=== PATIENT | male | born 1950 | race Caucasian/White ===

== ENCOUNTER → 2016-05-03 | Outpatient (CLI) | payer MEDICARE, BC ==
--- NOTE | 2016-05-03 20:16 | CT ---
EXAMINATION TYPE: CT ChestAbdPelvis w con DATE OF EXAM: 05/03/2016 7:49 PM COMPARISON: 02/06/2016 HISTORY: Pt states of pancreatic CA, F/U for mets. CT DLP: 685.9 mGycm Automated exposure control for dose reduction was used. CONTRAST: CT scan of the chest, abdomen and pelvis is performed with Oral Contrast and with IV Contrast, patien t injected with 100 mL of Omnipaque 300. FINDINGS: There is minimal subsegmental atelectasis at the lung bases. Heart size is normal. There is air in the biliary tree. There is cholecystectomy. There has been apparent resection of most of the pancreas compared to last exam. There is no adrenal mass. Kidneys show satisfactory contrast opacification. There is no hydronephrosi s. Ureters are not dilated. Spleen is absent. Abdominal aorta is atheromatous. There is variable plaque in the abdominal aorta. 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 Bladder distends smoothly. There is no sign of a pelvic mass. There is no ascites. I see no bowel obs truction. There is a 1 cm cortical cyst on the lower pole right kidney. There is no retroperitoneal a denopathy. Aneurysm extends into the common iliac arteries. Common iliac arteries measure up to 2 cm. I see no bony destructive process. There is no evidence of a pulmonary mass. There are no hilar masses. I see no filling defects in the pulmonary arteries. There is no pericardial effusion. There is no mediastinal adenopathy. IMPRESSION: Minimal fibrotic changes in atelectasis at the posterior lung bases. Otherwise negative C T scan of the chest. There is been apparent resection of the spleen and pancreas since the last CT scan. No dilated ducts. No evidence of renal obstruction. There is a stable 4 cm aneurysm of the abdominal aorta that extend s into the iliac arteries. No sign of recurrent tumor. No evidence of thoracic or abdominal metastati c disease. There is new mild subcutaneous edema over the posterior lower lumbar spine.
== END | disposition home or self-care (01) ==
LOC: RADCTMAIN 17:30
PROVIDERS: ATTEND Internal Medicine Hematology & Oncology
DX: J98.11 Atelectasis (principal); J84.10 Pulmonary fibrosis, unspecified; I71.4 Abdominal aortic aneurysm, without rupture; C24.1 Malignant neoplasm of ampulla of Vater
CPT/HCPCS: 71260; 74177; Q9967 ×2

== ENCOUNTER 2016-07-29 09:47 | Day surgery (SDC) | payer MEDICARE, BC ==
[2016-07-25 12:49] VITALS: BMI 23.5
--- NOTE | 2016-07-29 05:16 | HP ---
DATE OF ADMISSION: Chief complaint is fluid in the left ear. HISTORY OF PRESENT ILLNESS: This patient is a 66-year-old male who was recently seen in my office for evaluation of a plugged sensation in his left ear. At the time he was seen in my office, the patient stated that he had previously had a ventilation tube placed in his left ear at an ENT physician's office in [place], [place]. At the time that he was seen in the office he was complaining again that the left ear was plugged and apparently the tube had come out. Clinical examination of left ear revealed chronic left serous otitis media, so-called glue ear. It was recommended that the patient undergo a left myringotomy with insertion of ventilation tube under IV sedation. Past medical history reveals that the patient has no known allergies to medications. Previous surgeries include Whipple procedure, cervical fusion, portal shunt, and a left myringotomy with insertion of ventilation tube. He has no known allergies to medications. He is currently undergoing chemotherapy. His current medications include Lipitor, Hytrin, Valium, Protonix, Lovenox, Humalog and Lantus insulin. Review of systems reveals a cardiovascular system is positive for hypertension. Gastrointestinal system is positive for GERD. Metabolic/endocrine system is positive for type 1 diabetes mellitus. The remainder review of systems is essentially unremarkable. It is to be noted that this patient is currently undergoing chemotherapy for pancreatic carcinoma. PHYSICAL EXAMINATION: The patient is a pleasant 66-year-old male who is alert and cooperative. HEENT EXAMINATION: Patient is normocephalic. Examination of the right ear reveals right tympanic membrane is unremarkable. Examination of left ear reveals the left tympanic membrane is dull with fluid in the left middle ear space. Pupils equal, round, and reactive to light and accommodation. Extraocular movements are within normal limits. Intranasal examination reveals severe septal deviation to the left with compensatory hypertrophy of the inferior turbinates. Examination of the oropharynx, cranial nerves 2 through 12 and the remainder of the head and neck exam were essentially unremarkable. CHEST/CARDIOVASCULAR: Both lung lance are clear to percussion and auscultation. The patient is in regular sinus rhythm. S1 and S2 are present without evidence of any murmurs, S3s or S4s. Peripheral pulses are bilaterally symmetrical. ABDOMEN: There is no evidence of any masses, megaly or tenderness. The abdomen is soft. Skin is unremarkable. Musculoskeletal and neurological are within normal limits. RECTAL EXAM: The rectal exam is deferred at this time because the patient has this done on a regular basis at his family physician's office. The remainder of physical exam is unremarkable. IMPRESSION: Chronic left serous otitis media. PLAN: The patient is scheduled to undergo a left myringotomy with insertion of ventilation tube under IV sedation with MAC in a.m. ATTENTION RNS IN THE PRESURGICAL AREA: I have not ordered any presurgical prophylactic antibiotics for this patient. If the pharmacy department sends any presurgical prophylactic antibiotics to the presurgical area for this patient they should be returned to the pharmacy department and please make sure that the patient's account is credited appropriately. I have not ordered any medications for this patient preoperatively. I have explained the operation/procedure to the patient, including the risks, benefits, side effects, alternative therapies (including not receiving the proposed treatment or service), the likelihood of the patient achieving his/her goals, and potential recuperation problems for the procedure/sedation/analgesia, as well as any blood products, if indicated. I also explained to the patient the risks, benefits, and side effects of the alternatives, as well as the risks related to not receiving the proposed procedure, care treatment or services.
[~2016-07-29 09:47] MED LIST: DEXAMETHASONE SOD PHOSPHATE 10 MG/ML 1 ML VIAL IV ONE; HYDROmorphone 1 MG/ML 1 ML SYRINGE IVP PRN; LACTATED RINGERS 1,000 ML IV SCH; ONDANSETRON 4 MG/2 ML VIAL IVP ONE; Pre Op ABX Message 1 EACH MISC MISCELLANE ONE
[2016-07-29 11:11] LABS: Glucose,Whole Blood 255 mg/dL (75-99)
[2016-07-29 11:13] VITALS: RESP 16
[2016-07-29] MEDS ORDERED: LIDOCAINE 1% 20 ML VIAL (10MG/ML) FOR IV START INTRADERMA ONE (11:24)
[2016-07-29] MEDS ORDERED: MIDAZOLAM 2 MG/2 ML VIAL ONE (12:08)
[2016-07-29] MEDS ORDERED: PROPOFOL 10 MG/ML 20 ML VIAL IV ONE (12:08)
[2016-07-29] MEDS ORDERED: fentaNYL (PF) 50 MCG/ML 2 ML AMP ONE (12:08)
[2016-07-29] MEDS ORDERED: OFLOXACIN 0.3% OTIC DROPS 5 ML BTL LEFT EAR ONE ×2 (12:18→12:24)
[2016-07-29 12:39] VITALS: TEMP 97.6
[2016-07-29 12:45] LABS: Glucose,Whole Blood 243 mg/dL (75-99)
[2016-07-29 13:50] VITALS: BP 110/69; PULSE 79
--- NOTE | 2016-07-29 18:15 | OP ---
DATE OF SERVICE: 07/29/2016 SURGEON: ANI MARCIAL MD HOUSEKEEPING MANAGER: PREOPERATIVE DIAGNOSIS: Chronic left serous otitis media. POSTOPERATIVE DIAGNOSIS: Chronic left serous otitis media. OPERATION: Left myringotomy with insertion of a Manuel-type T tube into the left tympanic membrane. ANESTHESIA: IV sedation with M.A.C. ESTIMATED BLOOD LOSS: SPECIMENS REMOVED: COMPLICATIONS: None. OPERATIVE FINDINGS: OPERATIVE PROCEDURE: The patient was placed on the operating table in supine position and after uneventful IV sedation, satisfactory sedation was obtained. Next the patient's left ear was draped in the usual and customary fashion. Next, using the Zeiss operating microscope and a #3 aural speculum, the left external auditory canal was cleansed of all wax and debris. Immediately one could see the dull-colored left tympanic membrane. This suggested that the left middle ear space was filled with fluid. Therefore, using the myringotomy knife, an incision was made in the anterior/inferior quadrant of the left tympanic membrane. The middle ear space was suctioned free of all serous fluid and a Manuel T-type ventilation tube was inserted through the previously made myringotomy incision without any difficulty. At this point the procedure was terminated. There were no intraoperative complications. The patient tolerated the procedure well and was returned to the recovery room in satisfactory condition.
== END 2016-07-29 14:05 | disposition home or self-care (01) ==
LOC: OR 09:47
PROVIDERS: ATTEND Otolaryngology
DX: H65.22 Chronic serous otitis media, left ear (principal); I10 Essential (primary) hypertension; E78.5 Hyperlipidemia, unspecified; E10.9 Type 1 diabetes mellitus without complications; K21.9 Gastro-esophageal reflux disease without esophagitis; C25.9 Malignant neoplasm of pancreas, unspecified; Z79.02 Long term (current) use of antithrombotics/antiplatelets; Z79.4 Long term (current) use of insulin; Z79.899 Other long term (current) drug therapy; Z86.718 Personal history of other venous thrombosis and embolism; Z98.1 Arthrodesis status
CPT/HCPCS: 69436; J2250; J1100; J2405; J3010; J2704

== ENCOUNTER → 2016-08-19 | Outpatient (CLI) | payer MEDICARE, BC ==
[2016-08-19 14:34] LABS: Hemoglobin A1C 8.4 % (4.2-6.1)
== END | disposition home or self-care (01) ==
LOC: LABWHC1 09:02
PROVIDERS: ATTEND Internal Medicine Endocrinology, Diabetes & Metabolism
DX: E89.1 Postprocedural hypoinsulinemia (principal); E13.9 Other specified diabetes mellitus without complications; Z90.410 Acquired total absence of pancreas
CPT/HCPCS: 36415; 83036

== ENCOUNTER → 2016-09-16 | Outpatient (CLI) | payer MEDICARE, BC ==
--- NOTE | 2016-09-16 12:34 | CT ---
EXAMINATION TYPE: CT ChestAbdPelvis w con DATE OF EXAM: 09/16/2016 COMPARISON: 05/03/2016 and 02/06/2016 HISTORY: pancreatic CA CT DLP: 587.6 mGycm. Automated Exposure Control for Dose Reduction was Utilized. CONTRAST: CT scan of the thorax, abdomen and pelvis is performed with IV Contrast, patient injected with 100 mL of Omnipaque 300. FINDINGS: LUNGS: Mild centrilobular emphysematous changes are seen as well as pleural parenchymal scarring at t he lung bases. The lungs are grossly clear, there is no concerning parenchymal mass or nodule identif ied. There is no pleural effusion or pneumothorax seen. The tracheobronchial tree is patent. Small right posterior diaphragmatic hernias noted. MEDIASTINUM: There are no greater than 1 cm hilar or mediastinal lymph nodes. No pericardial effusi on is seen. OTHER: No additional significant abnormality is seen. LIVER/GB: No significant abnormality is appreciated. Area of low attenuation within the left hepatic lobe is thought to be related to a coursing hepatic vein and no focal measurable lesion is present. G allbladder is surgically absent. PANCREAS: Portions of the pancreas are surgically absent and the remaining portions have atrophied. SPLEEN: Surgically absent. ADRENALS: No significant abnormality is seen. KIDNEYS: Low-density right renal lesion emanating from the inferior pole is unchanged in the prior ex am and may represent a cyst with pseudoenhancement. BOWEL: No significant abnormality is seen. Sigmoid diverticulosis is noted without evidence of bowel wall thickening or obstructive process. GENITAL ORGANS: No gross abnormality seen. LYMPH NODES: No greater than 1cm abdominal or pelvic lymph nodes are appreciated although evaluation for local adenopathy is somewhat limited given the hepaticojejunal anastomotic site does not contain contrast or air and there is paucity of intra-abdominal fat in the peripancreatic region as well as m ild mesenteric congestion creating FAT stranding. OSSEOUS STRUCTURES: No suspicious osseous lesions. Midthoracic vertebral body hemangioma is noted as well as mild degenerative changes of the thoracolumbar and lumbosacral spine. OTHER: Long segment infrarenal abdominal aortic aneurysm is stable from the prior examination measuri ng up to 3.6 cm and extends into the common iliac arteries. IMPRESSION 1. Postsurgical changes of the abdomen with surgical absence pancreas and gallbladder. Hepaticojejuno stomy is noncontrast film and there is possibly a peripancreatic abdominal fat with mesenteric conges tive changes all limiting the evaluation for local adenopathy. Further investigation for adenopathy o r hepatic lesions could be pursued with MR abdomen. 2. Stable long segment infrarenal abdominal aortic aneurysm extending into the common iliac arteries. 3. No evidence of metastatic disease or adenopathy within the chest.
== END | disposition home or self-care (01) ==
LOC: RADPROMAIN 10:26
PROVIDERS: ATTEND Internal Medicine Hematology & Oncology
DX: I71.4 Abdominal aortic aneurysm, without rupture (principal); C24.8 Malignant neoplasm of overlapping sites of biliary tract; Z90.410 Acquired total absence of pancreas; Z90.49 Acquired absence of other specified parts of digestive tract; Z98.890 Other specified postprocedural states
CPT/HCPCS: 71260; 74177; 36415; Q9967

== ENCOUNTER → 2016-11-22 | Outpatient (CLI) | payer MEDICARE, BC | END | disposition home or self-care (01) | LOC: LABWHC1 10:04 | PROVIDERS: ATTEND Internal Medicine Endocrinology, Diabetes & Metabolism | DX: E10.9 Type 1 diabetes mellitus without complications (principal) | CPT/HCPCS: 36415; 83036 ==

== ENCOUNTER → 2017-02-04 | Outpatient (CLI) | payer MEDICARE, BC ==
[2017-02-04 11:28] LABS: ALT 56 U/L (21-72); AST 51 U/L (17-59); Albumin 3.6 g/dL (3.5-5.0); Alkaline Phosphatase 123 U/L (38-126); Anion Gap 7 mmol/L; Blood Urea Nitrogen 7 mg/dL (9-20); Calcium 9.8 mg/dL (8.4-10.2); Carbon Dioxide 31 mmol/L (22-30); Chloride 100 mmol/L (98-107); Glucose 299 mg/dL (74-99); Potassium 4.6 mmol/L (3.5-5.1); Sodium 138 mmol/L (137-145); Total Bilirubin 0.6 mg/dL (0.2-1.3)
--- NOTE | 2017-02-04 16:17 | CT ---
EXAMINATION TYPE: CT ChestAbdPelvis w con DATE OF EXAM: 02/04/2017 INDICATION: Follow up for ampullary cancer COMPARISON: 09/16/2016 CT DLP: 585.6 mGycm CONTRAST: Performed with Oral Contrast and with IV Contrast, patient injected with 100ml mL of Omnipaque 300. TECHNIQUE: Axial images at 5 mm thick sections. Reconstructed images in the coronal plane. Delayed images through the kidneys. FINDINGS: CT CHEST: Portion of the thyroid visualized is normal. No suspicious lung nodules or focal infiltrates are present. No enlarged mediastinal or hilar adenopathy is evident. The ascending aorta diameter at the level of the main pulmonary artery is 3.3 cm. The main pulmonary artery diameter at the bifurcation is 2.1 cm. Dense coronary artery calcification is evident. Vascul ar calcifications within the aorta. CT ABDOMEN: Liver: Normal. No hepatobiliary air is evident. Spleen: Surgically absent. Pancreas: Not identified. Density within the mesenteric fat is identification of residual pancreas di fficult. Adrenal glands: The adrenal glands are normal. Gallbladder: Surgically absent. Kidneys: No masses are evident. No hydronephrosis is present. Small cortical renal cyst is present on the right kidney. Delayed images were obtained through the kidneys, which remain unremarkable. Aorta: There is an infrarenal abdominal aortic aneurysm with AP diameter of 4.5 cm. Additional fusifo rm prominence of the distal abdominal aorta to the bifurcation is present with the AP diameter measur ing 3.7 cm. The right common iliac artery is a transverse dimension of 2.3 cm. Distal left common roni ac artery has some dilatation measuring 1.8 cm. Dense calcification is within the internal and retail personal banker al iliac vessels. Inferior vena cava: Normal. CT PELVIS: Small bowel loops distended with oral contrast appear normal. Distal small bowel loops. Contain fluid and are slightly prominent. A few diverticular changes are within the sigmoid colon. Fecal debris is within the colon. There are loops of bowel which are incompletely distended or lack oral contrast li miting their evaluation. Appendix: Normal as visualized. Urinary bladder: Normal. Genitourinary structures: Prostate may be mildly prominent. Osseous structures: No suspicious lytic or sclerotic lesions. IMPRESSIONS: 1. Examination appears stable from 09/16/2016. 2. Abdominal aortic fusiform prominence and abdominal aortic aneurysm discussed above. 3. Postsurgical changes upper abdomen
== END | disposition home or self-care (01) ==
LOC: RADCTMAIN 10:38
PROVIDERS: ATTEND Internal Medicine Hematology & Oncology
DX: C24.8 Malignant neoplasm of overlapping sites of biliary tract (principal); I71.4 Abdominal aortic aneurysm, without rupture; E10.9 Type 1 diabetes mellitus without complications; Z98.890 Other specified postprocedural states
CPT/HCPCS: 80053; 71260; 74177; 36415; Q9967

== ENCOUNTER → 2017-02-27 | Outpatient (CLI) | payer MEDICARE, BC ==
[2017-02-27 12:10] LABS: Basophils % (A) 1 %; Eosinophils # (A) 0.5 k/uL (0-0.7); Eosinophils % (A) 10 %; HCT 40.3 % (39.0-53.0); HGB 12.8 gm/dL (13.0-17.5); Lymphocytes # (A) 1.2 k/uL (1.0-4.8); Lymphocytes % (A) 25 %; MCH 33.7 pg (25.0-35.0); MCHC 31.7 g/dL (31.0-37.0); MCV 106.2 fL (80.0-100.0); Macrocytosis Moderate; Mean Platelet Volume 9.1; Monocytes # (A) 0.5 k/uL (0-1.0); Monocytes % (A) 9 %; Neutrophils # (A) 2.6 k/uL (1.3-7.7); Neutrophils % (A) 52 %; Platelet Count 167 k/uL (150-450); RDW 15.1 % (11.5-15.5); WBC 5.1 k/uL (3.8-10.6)
== END | disposition home or self-care (01) ==
LOC: LABWHC1 11:10
PROVIDERS: ATTEND Radiology Radiation Oncology
DX: C24.1 Malignant neoplasm of ampulla of Vater (principal)
CPT/HCPCS: 36415; 85025

== ENCOUNTER → 2017-04-03 | Outpatient (CLI) | payer MEDICARE, BC | END | disposition home or self-care (01) | LOC: LABWHC1 10:42 | PROVIDERS: ATTEND Internal Medicine Endocrinology, Diabetes & Metabolism | DX: E11.9 Type 2 diabetes mellitus without complications (principal) | CPT/HCPCS: 36415; 83036 ==

== ENCOUNTER → 2017-06-26 | Outpatient (CLI) | payer MEDICARE, BC ==
[2017-06-26 14:01] LABS: Basophils % (A) 1 %; Eosinophils # (A) 0.1 k/uL (0-0.7); Eosinophils % (A) 3 %; HCT 39.3 % (39.0-53.0); Lymphocytes # (A) 1.5 k/uL (1.0-4.8); Lymphocytes % (A) 34 %; MCH 33.4 pg (25.0-35.0); MCHC 33.2 g/dL (31.0-37.0); MCV 100.7 fL (80.0-100.0); Mean Platelet Volume 9.5; Monocytes # (A) 0.4 k/uL (0-1.0); Monocytes % (A) 9 %; Neutrophils # (A) 2.1 k/uL (1.3-7.7); Neutrophils % (A) 50 %; Platelet Count 156 k/uL (150-450); RDW 13.7 % (11.5-15.5); WBC 4.3 k/uL (3.8-10.6)
[2017-06-26 14:15] LABS: ALT 49 U/L (21-72); AST 46 U/L (17-59); Albumin 3.8 g/dL (3.5-5.0); Alkaline Phosphatase 117 U/L (38-126); Anion Gap 9 mmol/L; Blood Urea Nitrogen 7 mg/dL (9-20); Calcium 9.4 mg/dL (8.4-10.2); Carbon Dioxide 29 mmol/L (22-30); Chloride 100 mmol/L (98-107); Glucose 208 mg/dL (74-99); Potassium 4.1 mmol/L (3.5-5.1); Sodium 138 mmol/L (137-145); Total Bilirubin 0.8 mg/dL (0.2-1.3); Total Protein 5.9 g/dL (6.3-8.2)
== END | disposition home or self-care (01) ==
LOC: LABWHC1 13:36
PROVIDERS: ATTEND Internal Medicine Hematology & Oncology
DX: C25.9 Malignant neoplasm of pancreas, unspecified (principal)
CPT/HCPCS: 36415; 80053; 85025; 86301

== ENCOUNTER → 2017-06-30 | Outpatient (CLI) | payer MEDICARE, BC ==
[2017-07-01 02:16] LABS: Hemoglobin A1C 9.1 % (4.0-6.0)
== END | disposition home or self-care (01) ==
LOC: LABWHC1 16:01
PROVIDERS: ATTEND Internal Medicine Endocrinology, Diabetes & Metabolism
DX: E11.65 Type 2 diabetes mellitus with hyperglycemia (principal); Z79.4 Long term (current) use of insulin
CPT/HCPCS: 36415; 83036

== ENCOUNTER → 2017-07-03 | Outpatient (CLI) | payer MEDICARE, BC ==
--- NOTE | 2017-07-03 13:41 | CT ---
EXAMINATION TYPE: CT ChestAbdPelvis w con DATE OF EXAM: 07/03/2017 COMPARISON: 02/04/2017 HISTORY: Patient has no complaints at time of study. Follow up study for known pancreatic CA post wh ipple. CT DLP: 1240 mGycm CONTRAST: CT scan of the chest, abdomen and pelvis is performed with Oral Contrast and with IV Contrast, patien t injected with 100 mL of Isovue 300. CT Chest: LUNGS: Emphysematous changes identified mild in degree within the upper lobes. The lungs are clear an d free of infiltrate or atelectasis. No pulmonary nodule or mass is detected. No pleural effusion o r CT evidence of interstitial lung disease. MEDIASTINUM: Thoracic aorta is of normal caliber. The heart is not enlarged. Coronary artery calci fications noted. No evidence for mediastinal mass or adenopathy. HILAR STRUCTURES: No evidence for mass. No hilar adenopathy is appreciated. OTHER: No significant abnormality. CONTRAST CT ABDOMEN AND PELVIS FINDINGS: LIVER/GB: The gallbladder surgically absent. No space occupying hepatic lesion. Biliary tree is of no rmal caliber. PANCREAS: There appears to have been previous Whipple procedure. No recurrent or residual pancreatic bed mass identified. SPLEEN: No splenic enlargement. No lesion seen. ADRENALS: No nodule. No thickening. KIDNEYS/BLADDER: No hydronephrosis. No nephrolithiasis. Mixed attenuation lesion lower pole left ki dney measuring 2 cm is suspicious for renal cell carcinoma. consult recommended. Simple cyst lower pole right kidney. BOWEL: Normal appendix. Normal bowel caliber. No inflammation. GENITAL ORGANS: No gross abnormality. LYMPH NODES: No greater than 1cm abdominal or pelvic lymph nodes are appreciated. AORTA: Infrarenal fusiform aneurysm is essentially unchanged with extension into the common iliac art eries bilaterally. OSSEOUS STRUCTURES: No significant abnormality is seen. OTHER: No significant additional abnormality is seen. IMPRESSION: 1. Mixed attenuation lesion lower pole left kidney measuring 2 cm is suspicious for renal cell carcin beth. consult recommended. 2. No evidence for recurrent or residual pancreatic mass. 3. Infrarenal abdominal aortic aneurysm appears stable.
== END | disposition home or self-care (01) ==
LOC: RADCTMAIN 11:15
PROVIDERS: ATTEND Internal Medicine Hematology & Oncology
DX: C24.8 Malignant neoplasm of overlapping sites of biliary tract (principal); N28.9 Disorder of kidney and ureter, unspecified; I71.4 Abdominal aortic aneurysm, without rupture; Z85.07 Personal history of malignant neoplasm of pancreas; Z98.890 Other specified postprocedural states
CPT/HCPCS: 71260; 74177; Q9967

== ENCOUNTER 2017-09-16 13:03 | Emergency (ER) | payer MEDICARE, BC ==
[2017-09-16 13:13] VITALS: RESP 18; TEMP 98
--- NOTE | 2017-09-16 14:14 | ED ---
General Adult HPI - General Chief complaint: Back Pain/Injury Stated complaint: lt sided rib pain Time Seen by Provider: 09/16/17 14:05 Source: patient, RN notes reviewed Mode of arrival: ambulatory Limitations: no limitations - History of Present Illness Initial comments: This is a 67-year-old male who presents to the emergency department with chief complaint of left-sided rib pain. Patient states that a few days ago he was walking quickly around his card table. He states that he ran into a chair and hit the left side of his ribs hard. Patient states that he is now experiencing left-sided rib pain. Patient states that pain is increased with twisting, bending over and lying on his left side. He denies any shortness of breath or chest pain. He denies any abdominal pain. Denies fevers or chills. - Related Data Home Medications Medication Instructions Recorded Confirmed Atorvastatin [Lipitor] 80 mg PO 1600 04/10/15 07/29/16 Diazepam [Valium] 10 mg PO DAILY PRN 04/10/15 07/29/16 Terazosin [Hytrin] 2 mg PO 1600 04/10/15 07/29/16 Cholecalciferol [Vitamin D3] 2,000 unit PO DAILY 09/28/15 07/29/16 Enoxaparin [Lovenox] 70 units SQ BID 07/25/16 07/29/16 INSULIN LISPRO (HumaLOG) [HumaLOG] 0 units SQ QID 07/25/16 07/29/16 Insulin Glargine [Lantus] 20 unit SQ QAM 07/25/16 07/29/16 Lipase/Protease/Amylase [Creon Dr 1 each PO TID 07/25/16 07/29/16 6,000 Units Capsule] Pantoprazole Sodium [Protonix] 40 mg PO QAM 07/25/16 07/29/16 Previous Rx's Medication Instructions Recorded Ofloxacin 0.3% Ophth Soln [Ocuflox 10 drops LEFT EAR BID #5 ml NS 07/29/16 Ophth Soln] Allergies Allergy/AdvReac Type Severity Reaction Status Date / Time No Known Allergies Allergy Verified 09/16/17 13:13 Review of Systems ROS Statement: Those systems with pertinent positive or pertinent negative responses have been documented in the HPI. ROS Other: All systems not noted in ROS Statement are negative. Past Medical History Past Medical History: Cancer, Diabetes Mellitus, Deep Vein Thrombosis (DVT), Hearing Disorder / Deafness, Hyperlipidemia, Myocardial Infarction ([place]), Musculoskeletal Disorder, Osteoarthritis ([place]), Pneumonia Additional Past Medical History / Comment(s): PNEUMONIA 04/10/15, HAS ABDOMINAL AORTIC ANEURYSM- DR. JOHNSON, CONSTIPATION, ARTHRITIS IN NECK & LOWER BACK, CHRONIC LEFT EAR INFECTIONS. PANCREATIC CANCER, ON CHEMO LAST DONE ON 07/12/16. DVT RIGHT LEG JUNE 04. DVT AFTER FEEDING TUBE REMOVED MAR 2016. CURRENTLY HAS PORT A CATH NEAR RIGHT SHOULDER. SEPSIS AND CELLULITIS MAY 2016. HARD OF HEARING BILATERALLY. Last Myocardial Infarction Date:: 1988 History of Any Multi-Drug Resistant Organisms: None Reported Past Surgical History: Ear Surgery, Heart Catheterization Additional Past Surgical History / Comment(s): CERVICAL FUSION X 2, TUBE IN LEFT EAR JUNE 2015, HEART CATH WITH BALLOONING 1988. FEEDING TUBE AND PICC LINE - REMOVED MAR 2016. PORT A CATH BY RIGHT SHOULDER. WHIPPLE PROCEDURE MAR 07 2016 , PANCREATIC CANCER. Past Anesthesia/Blood Transfusion Reactions: No Reported Reaction Past Psychological History: No Psychological Hx Reported Smoking Status: Former smoker Past Alcohol Use History: None Reported Past Drug Use History: None Reported - Past Family History Mother Family Medical History: Diabetes Mellitus Father Family Medical History: Cancer Additional Family Medical History / Comment(s): LIVER CA General Exam - General Exam Comments Initial Comments: General: Awake and alert, well-developed; in no apparent distress. Patient lying comfortably on ED stretcher. He does have difficulty going from lying to sitting position due to pain. HEENT: Head atraumatic, normocephalic. Pupils are equal, round and reactive to light. Extraocular movements intact. Oropharynx moist without erythema or exudate. Neck: Supple. Normal ROM. Cardiovascular/Chest: Regular rate and rhythm. No murmurs, rubs or gallops. Chest symmetrical. There is tenderness on palpation of the left anterolateral inferior ribs. No obvious deformities. Respiratory: Lungs clear to auscultation bilaterally. No wheezes, rales or rhonchi. Normal respiratory effort with no use of accessory muscles. Abdomen: Soft, non-tender, non-distended. No rigidity, rebound or guarding. Musculoskeletal: Normal ROM, no tenderness bilateral upper and lower extremities. Ambulating normally. Skin: [place], warm and dry without rashes or lesions. Neurological: Alert and oriented x3. CN II-XII grossly intact. Speech is fluent and answers are appropriate. No focal neuro deficits. Psychiatric: Normal mood and affect. No overt signs of depression or anxiety noted. Limitations: no limitations Course Vital Signs 09/16/17 13:10 Temperature 98 F Pulse Rate 68 Respiratory 18 Rate Blood Pressure 153/73 O2 Sat by Pulse 98 Oximetry Medical Decision Making - Medical Decision Making This is a 67-year-old male who presents to the emergency department with chief complaint of left-sided rib pain. Patient reports running into a chair a few days ago and experiencing left-sided rib pain. Pain is positional and reproducible. Denies shortness of breath, chest pain, fevers or chills. Denies abdominal pain. Tenderness on palpation of left anterolateral inferior ribs. Chest x-ray revealed no acute cardiopulmonary processes. No evidence of displaced fractures. Recommended Tylenol, ice and rest. Educated patient that may be a few weeks before he experiences total relief of pain. Recommended following up with his primary care provider. Return parameters were discussed. Patient's vital signs are stable and he is in no acute distress. He will be discharged home at this time. He is in agreement and voices understanding. All questions were answered. - Radiology Data Radiology results: report reviewed Chest x-ray findings: There is no focal airspace opacity, pleural effusion or pneumothorax seen. The cardiac silhouette size is within normal limits. The osseous structures are intact. Prominent lung volumes compatible with emphysema , COPD. There are coronary artery calcifications. The aorta stents. Impression: No acute cardiopulmonary process Disposition Clinical Impression: Contusion of rib on left side Disposition: HOME SELF-CARE Condition: Good Instructions: Rib Contusion (ED) Additional Instructions: Please follow up with primary care provider within 1-2 days. Return to emergency department if symptoms should worsen or any concerns arise. Is patient prescribed a controlled substance at d/c from ED?: No Referrals: Brando Chapman DO [Primary Care Provider] - 1-2 days Time of Disposition: 14:50
--- NOTE | 2017-09-16 14:33 | XR ---
EXAMINATION TYPE: XR chest 2V DATE OF EXAM: 09/16/2017 COMPARISON: Prior chest x-ray 02/06/2016 HISTORY: Trauma and pain TECHNIQUE: Frontal and lateral views of the chest are obtained. FINDINGS: There is no focal air space opacity, pleural effusion, or pneumothorax seen. The cardiac silhouette size is within normal limits. The osseous structures are intact. Prominent lung volumes compatible with emphysema, COPD. There are coronary artery calcifications. The aorta is dense. IMPRESSION: No acute cardiopulmonary process.
[2017-09-16 15:01] VITALS: BP 111/67; PULSE 55
== END 2017-09-16 15:01 | disposition home or self-care (01) ==
LOC: EC 13:03
DX: S20.212A Contusion of left front wall of thorax, initial encounter (principal); E11.9 Type 2 diabetes mellitus without complications; E78.5 Hyperlipidemia, unspecified; I25.2 Old myocardial infarction; Z86.718 Personal history of other venous thrombosis and embolism; Z85.07 Personal history of malignant neoplasm of pancreas; Z92.21 Personal history of antineoplastic chemotherapy; Z95.818 Presence of other cardiac implants and grafts; Z87.891 Personal history of nicotine dependence; Z79.01 Long term (current) use of anticoagulants; Z79.4 Long term (current) use of insulin; Z79.899 Other long term (current) drug therapy; W22.8XXA Striking against or struck by other objects, initial encounter; Y93.02 Activity, running
CPT/HCPCS: 71046; 99283

== ENCOUNTER → 2017-11-24 | Outpatient (CLI) | payer MEDICARE, BC ==
[2017-11-24 11:00] LABS: Basophils % (A) 1 %; Eosinophils # (A) 0.1 k/uL (0-0.7); Eosinophils % (A) 1 %; HCT 39.2 % (39.0-53.0); Lymphocytes # (A) 1.8 k/uL (1.0-4.8); Lymphocytes % (A) 33 %; MCH 33.5 pg (25.0-35.0); MCHC 33.1 g/dL (31.0-37.0); MCV 101.2 fL (80.0-100.0); Macrocytosis Slight; Mean Platelet Volume 9.2; Monocytes # (A) 0.5 k/uL (0-1.0); Monocytes % (A) 9 %; Neutrophils # (A) 2.9 k/uL (1.3-7.7); Neutrophils % (A) 54 %; Platelet Count 167 k/uL (150-450); RBC 3.87 m/uL (4.30-5.90); WBC 5.3 k/uL (3.8-10.6)
[2017-11-24 11:23] LABS: ALT 43 U/L (21-72); AST 66 U/L (17-59); Albumin 3.7 g/dL (3.5-5.0); Alkaline Phosphatase 115 U/L (38-126); Anion Gap 8 mmol/L; Blood Urea Nitrogen 7 mg/dL (9-20); Calcium 9.2 mg/dL (8.4-10.2); Carbon Dioxide 28 mmol/L (22-30); Chloride 101 mmol/L (98-107); Glucose 256 mg/dL (74-99); Potassium 4.7 mmol/L (3.5-5.1); Sodium 137 mmol/L (137-145); Total Bilirubin 0.9 mg/dL (0.2-1.3); Total Protein 6.1 g/dL (6.3-8.2)
--- NOTE | 2017-11-24 12:29 | CT ---
EXAMINATION TYPE: CT ChestAbdPelvis w con DATE OF EXAM: 11/24/2017 COMPARISON: CT chest abdomen and pelvis July 03, 2017 and older studies. HISTORY: Pancreatic cancer follow up. CT DLP: 569.9 mGycm. Automated Exposure Control for Dose Reduction was Utilized. CONTRAST: CT scan of the thorax, abdomen and pelvis is performed with oral water and with IV Contrast, patient injected with 120 mL of Isovue 370. Pancreatic protocol. FINDINGS: Patient is status post virtual no intra-abdominal fat making evaluation suboptimal. LUNGS: Mild underlying emphysematous change is redemonstrated. No suspicious nodules or masses are no ashley. There is bibasilar linear scarring and/or atelectasis redemonstrated. No pleural effusion or pne umothorax is seen. MEDIASTINUM: There are no greater than 1 cm hilar or mediastinal lymph nodes. No cardiomegaly or pe ricardial effusion is seen. Coronary artery calcification is redemonstrated which is noted marked co ronary artery disease. OTHER: No additional significant abnormality is seen. LIVER/GB: Gallbladder is not visualized and presumed surgically absent. PANCREAS: No definite visualization of remnant pancreatic tissue which is suspected surgically absent . SPLEEN: Spleen is not seen and presumed surgically absent. ADRENALS: No significant abnormality is seen. KIDNEYS: Stable 1.2 cm simple appearing cyst medially lower pole level right kidney image 193. Persis tent 2.0 cm area of delayed enhancement medially lower pole level left kidney image 199 which cannot exclude solid mass or neoplasm. This is new from January 2016 CT BOWEL: Patient has virtually no fat making evaluation of bowel suboptimal. No suspicious dilatation i s seen. GENITAL ORGANS: Prostate gland is enlarged in size bulging on bladder base. Mild distention of bladde r is noted. Few scattered pelvic phleboliths are seen. LYMPH NODES: No greater than 1cm abdominal or pelvic lymph nodes are appreciated. OSSEOUS STRUCTURES: S-shaped scoliosis is present. There is multilevel spurring in the thoracolumbar spine. OTHER: There is redemonstration of aneurysm of the abdominal aorta measuring up to 4.3 cm AP diameter axial image 189. There is ectatic course extending to right of midline inferior to this redemonstrat ed. There is eccentric mural noncalcified plaque again seen. Ectasia or mild aneurysmal change of valery ateral common iliac arteries is stable. IMPRESSION: Persistent suspicious area or lesion anteriorly lower pole level left kidney in which isaiah plasm cannot be excluded. Otherwise no new suspicious mass or adenopathy is noted.
== END ==
LOC: RADCTMAIN 09:51
PROVIDERS: ATTEND Internal Medicine Hematology & Oncology
DX: C24.1 Malignant neoplasm of ampulla of Vater (principal)
CPT/HCPCS: 80053; 85025; 86301; 71260; 74177; 36415; Q9967

== ENCOUNTER → 2017-12-04 | Outpatient (CLI) | payer MEDICARE, BC ==
[2017-12-04 15:39] LABS: Albumin 4.1 g/dL (3.80-4.90); Albumin/Globulin Ratio 2.41 (1.20-2.10); Calcium 9.2 mg/dL (8.7-10.3); Globulin 1.7 g/dL (2.1-3.7); Potassium 4.8 mmol/L (3.5-5.5); Total Bilirubin 0.8 mg/dL (0.3-1.2); Total Protein 5.8 g/dL (6.2-8.2)
== END | disposition home or self-care (01) ==
LOC: LABWHC1 10:29
PROVIDERS: ATTEND Internal Medicine Endocrinology, Diabetes & Metabolism
DX: E11.9 Type 2 diabetes mellitus without complications (principal)
CPT/HCPCS: 36415; 80053

== ENCOUNTER → 2017-12-18 | Outpatient (CLI) | payer MEDICARE, BC | LOC: LABWHC1 10:48 | PROVIDERS: ATTEND Internal Medicine Endocrinology, Diabetes & Metabolism | DX: E10.65 Type 1 diabetes mellitus with hyperglycemia (principal) | CPT/HCPCS: 36415; 83036 ==

== ENCOUNTER → 2018-03-26 | Outpatient (CLI) | payer MEDICARE, BC ==
[2018-03-26 14:03] LABS: HCT 41.7 % (39.0-53.0); HGB 13.5 gm/dL (13.0-17.5); MCH 32.9 pg (25.0-35.0); MCHC 32.4 g/dL (31.0-37.0); MCV 101.6 fL (80.0-100.0); Macrocytosis Slight; Mean Platelet Volume 8.8; Platelet Count 148 k/uL (150-450); RBC 4.11 m/uL (4.30-5.90); RDW 14.1 % (11.5-15.5)
[2018-03-26 14:10] LABS: ALT 44 U/L (21-72); AST 42 U/L (17-59); Albumin 4.2 g/dL (3.5-5.0); Alkaline Phosphatase 98 U/L (38-126); Anion Gap 7 mmol/L; Blood Urea Nitrogen 8 mg/dL (9-20); Calcium 9.8 mg/dL (8.4-10.2); Carbon Dioxide 29 mmol/L (22-30); Chloride 104 mmol/L (98-107); Glucose 140 mg/dL (74-99); Potassium 3.9 mmol/L (3.5-5.1); Sodium 140 mmol/L (137-145); Total Protein 6.5 g/dL (6.3-8.2)
--- NOTE | 2018-03-26 16:10 | CT ---
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 Follow up study. CT DLP: 1163 mGycm. Automated Exposure Control for Dose Reduction was Utilized. CONTRAST: CT scan of the thorax, abdomen and pelvis is performed with IV Contrast, patient injected with 100 mL of Isovue M300. FINDINGS: LUNGS: The lungs are grossly clear, there is no concerning parenchymal mass or nodule identified. T here is no pleural effusion or pneumothorax seen. The tracheobronchial tree is patent. Mild underlyi ng centrilobular emphysematous changes redemonstrated. Bibasilar pleural parenchymal scarring is agai n noted. MEDIASTINUM: There are no greater than 1 cm hilar or mediastinal lymph nodes. No pericardial effusi on is seen. Severe coronary artery calcifications are again present, marker of coronary artery disea se. Moderate atherosclerosis of the thoracic aorta is noted. LIVER/GB: There is new pneumobilia and is left-sided. Correlate with any recent instrumentation. No n ew suspicious hepatic lesion is identified. Gallbladder is again thought to be surgically absent. PANCREAS: There is central mesenteric congestion and haziness with opposing loops of small bowel in t he postsurgical bed. No residual pancreatic tissue is again appreciated. SPLEEN: Surgically absent. ADRENALS: Adrenals are difficult to visualize given apposition of bowel and mesenteric edema however no gross adrenal mass is seen. KIDNEYS: Again there is suspicious left lower pole renal mass measuring 2.4 x 2.2 x 1.9 cm on series 3 image 84 and series 5 image 54. Simple right renal cyst is redemonstrated of the medial inferior po le. No hydronephrosis of either kidney. BOWEL: Again there is apposition of bowel loops throughout the abdomen making evaluation of the bowel difficult overall. Again there is no gross abnormality seen on the prior. GENITAL ORGANS AND URINARY BLADDER: Urinary bladder is markedly distended and prostate gland is enlar ged and heterogenous. No trabeculation or undulation of the urinary bladder wall. No urinary bladder wall thickening. LYMPH NODES: Difficult to evaluate however no gross adenopathy is seen. OSSEOUS STRUCTURES: Chronic deformity is seen of the right sacroiliac joint. Moderate degenerative ch anges of the right femoral acetabular joint, small cam deformity on the left and mild left femoral ac etabular arthropathy as well as multilevel degenerative changes of the thoracic spine are again noted with mild levoscoliosis of the thoracolumbar junction. VASCULATURE: Again there is note made of a bilobed infrarenal abdominal aortic aneurysm measuring up to 4.7 cm in anterior posterior dimension and its cranial aspect and 4.3 cm in anterior posterior dim ension in its caudal aspect. 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 Severe atherosclerosis is seen of the abdominal aorta and its branches. IMPRESSION: 1. Redemonstration of a suspicious left lower pole renal mass in the anterior margin of the left lowe r pole. Renal ultrasound could be performed to evaluate for visualization on ultrasound and possible biopsy. 2. No new evidence of visceral metastasis in the chest, abdomen, or pelvis although central mesenteri c congestion and paucity of intra-abdominal fat makes evaluation for local adenopathy is extremely li mited. 3. Redemonstration of an overall stable bilobed infrarenal abdominal aortic aneurysm with extensive c alcific and noncalcific atheromatous plaquing. 4. Diffuse heterogeneity of the prostate gland and enlargement with findings suspicious for urinary b ladder outlet obstruction due to prostatomegaly. Correlate with PSA given the heterogeneity.
== END | disposition home or self-care (01) ==
LOC: RADCTMAIN 13:34
PROVIDERS: ATTEND Internal Medicine Hematology & Oncology
DX: I71.4 Abdominal aortic aneurysm, without rupture (principal); N40.0 Benign prostatic hyperplasia without lower urinary tract symptoms; N28.89 Other specified disorders of kidney and ureter; R59.0 Localized enlarged lymph nodes; C24.8 Malignant neoplasm of overlapping sites of biliary tract
CPT/HCPCS: 80053; 85027; 86301; 71260; 74177; 36415; Q9967

== ENCOUNTER → 2018-07-02 | Outpatient (CLI) | payer MEDICARE, BC ==
[2018-07-02 20:18] LABS: Hemoglobin A1C 8.8 % (4.0-6.0)
== END | disposition home or self-care (01) ==
LOC: LABWHC1 10:44
PROVIDERS: ATTEND Internal Medicine Endocrinology, Diabetes & Metabolism
DX: E10.9 Type 1 diabetes mellitus without complications (principal)
CPT/HCPCS: 36415; 83036

== ENCOUNTER → 2018-07-31 | Outpatient (CLI) | payer MEDICARE, BC ==
[2018-07-31 09:34] LABS: HCT 41.2 % (39.0-53.0); HGB 13.2 gm/dL (13.0-17.5); MCH 31.8 pg (25.0-35.0); MCV 99.5 fL (80.0-100.0); Mean Platelet Volume 8.5; Platelet Count 203 k/uL (150-450); RBC 4.14 m/uL (4.30-5.90); RDW 13.8 % (11.5-15.5); WBC 5.6 k/uL (3.8-10.6)
[2018-07-31 09:56] LABS: ALT 54 U/L (21-72); AST 58 U/L (17-59); African American GFR (CKD) >90 (>60 ml/min/1.73 sqM); Albumin 4.2 g/dL (3.5-5.0); Alkaline Phosphatase 103 U/L (38-126); Anion Gap 6 mmol/L; Blood Urea Nitrogen 7 mg/dL (9-20); Calcium 9.3 mg/dL (8.4-10.2); Carbon Dioxide 30 mmol/L (22-30); Chloride 101 mmol/L (98-107); Glucose 268 mg/dL (74-99); Sodium 137 mmol/L (137-145); Total Bilirubin 0.8 mg/dL (0.2-1.3); Total Protein 6.7 g/dL (6.3-8.2)
--- NOTE | 2018-07-31 12:19 | CT ---
EXAMINATION TYPE: CT ChestAbdPelvis w con DATE OF EXAM: 07/31/2018 COMPARISON: Prior CT 03/26/2018 HISTORY: Mckayla ampullary cancer. CT DLP: 700.4 mGycm Automated exposure control for dose reduction was used. CONTRAST: CT scan of the chest, abdomen and pelvis is performed with Oral Contrast and with IV Contrast, patien t injected with 100 mL of Isovue M300. FINDINGS: There are generalized changes of anasarca. Patient is cachectic. There may be varices in th e upper abdomen. LUNGS: The lungs are grossly clear, there is no concerning parenchymal mass or nodule identified. Emp hysematous changes are present. There is no pleural effusion or pneumothorax seen. The tracheobronc hial tree is patent. MEDIASTINUM: There are no greater than 1 cm hilar or mediastinal lymph nodes. No pericardial effusi on is seen. Coronary artery calcifications are dense, heart is small. AORTA: Stable abdominal aortic aneurysm, common iliac artery aneurysms. OTHER: A relative paucity of intra-abdominal fat may limit sensitivity. LIVER/GB: Periportal edema changes are present. Patient is post cholecystectomy.. PANCREAS: No significant abnormality is seen. SPLEEN: Absent ADRENALS: No significant abnormality is seen. KIDNEYS: Stable, inferior pole the left kidney shows a unchanged appearance. REPRODUCTIVE ORGANS: Stable prostate enlargement.. BOWEL: Suspect there is been postop change to the duodenum, contrast courses into the small bowel, c orrelate for history of abdominal surgery. Likely there are thickened little of the colon. FREE AIR: No Free Air visible. ASCITES: None seen. RETROPERITONEAL ADENOPATHY: No retroperitoneal adenopathy is seen. LYMPH NODES: No greater than 1 cm abdominal or pelvic lymph nodes are appreciated. URINARY BLADDER: Urine distended, there is thickening of the urinary bladder wall as on prior PELVIC ADENOPATHY: None visualized. OSSEOUS STRUCTURES: No significant change is seen. IMPRESSION: No significant interval change is evident. Evaluation is limited.
== END | disposition home or self-care (01) ==
LOC: RADCTMAIN 08:49
PROVIDERS: ATTEND Internal Medicine Hematology & Oncology
DX: C24.8 Malignant neoplasm of overlapping sites of biliary tract (principal)
CPT/HCPCS: 80053; 85027; 86301; 71260; 74177; 36415; Q9967

== ENCOUNTER → 2019-01-18 | Outpatient (CLI) | payer MEDICARE, BC ==
[2019-01-18 13:15] LABS: African American GFR (CKD) >90 (>60 ml/min/1.73 sqM); Blood Urea Nitrogen 7 mg/dL (9-20); Non-African American GFR(CKD) >90 (>60 ml/min/1.73 sqM)
--- NOTE | 2019-01-18 18:19 | CT ---
EXAMINATION TYPE: CT ChestAbdPelvis wo/w con DATE OF EXAM: 01/18/2019 INDICATION: Follow up for pancreatic CA COMPARISON: 07/31/2018 CT DLP: 1016.6 mGycm CONTRAST: Performed with Oral Contrast and without and with IV Contrast, patient injected with 100 mL of Isovue 300. TECHNIQUE: Axial images at 5 mm thick sections. Reconstructed images in the coronal plane. Delayed images through the kidneys. FINDINGS: CT CHEST: Portion of the thyroid visualized is normal. No suspicious lung nodules or focal infiltrates are present. No enlarged mediastinal or hilar adenopathy is evident. The ascending aorta diameter at the level of the main pulmonary artery is 3.5 cm. The main pulmonary artery diameter at the bifurcation is 2.3 cm. Vascular calcification is through the aorta. Dense cor onary artery calcification is present. CT ABDOMEN: Liver: Normal Spleen: Normal Pancreas: Imaging from the pancreas is extremely limited. No obvious masses or ductal dilatation is e vident. However, exam is very limited Adrenal glands: The adrenal glands are normal. Gallbladder: Normal Kidneys: No masses are evident. No hydronephrosis is present. No cysts are present. Delayed images were obtained through the kidneys, which remain unremarkable. Aorta: Vascular calcification is within the aorta. There is an abdominal aortic aneurysm measuring 4 .8 cm in AP dimension. This extends into the common iliac vessels. The right common iliac artery nancy ures 2.7 cm. The left distal common iliac artery measuring 1.8 cm. Inferior vena cava: Normal. CT PELVIS: Loops of bowel within the abdomen and pelvis are normal. Scattered diverticuli are within the sig moid colon. Loops of bowel without contrast has limitation. The patient's periampullary carcinoma within the duodenum is not well delineated on the current [facility] study. Appendix: Normal as visualized. Urinary bladder: Distended. Genitourinary structures: Prostate is very prominent. Osseous structures: No suspicious lytic or sclerotic lesions. IMPRESSIONS: 1. Diverticulosis without acute diverticulitis. 2. Prominent prostate. 3. Abdominal aortic aneurysm with an AP dimension of 4.8 cm.
== END | disposition home or self-care (01) ==
LOC: RADCTMAIN 12:25
PROVIDERS: ATTEND Radiology Radiation Oncology
DX: K57.30 Diverticulosis of large intestine without perforation or abscess without bleeding (principal); I71.4 Abdominal aortic aneurysm, without rupture; C24.1 Malignant neoplasm of ampulla of Vater; C77.9 Secondary and unspecified malignant neoplasm of lymph node, unspecified; Z87.891 Personal history of nicotine dependence; Z92.3 Personal history of irradiation; Z92.21 Personal history of antineoplastic chemotherapy
CPT/HCPCS: 82565; 84520; 71270; 74178; 36415; Q9967

== ENCOUNTER → 2019-04-26 | Outpatient (CLI) | payer MEDICARE, BC | END | disposition home or self-care (01) | CPT/HCPCS: 80053; 83690; 85025; 86140; 74177; 36415; Q9967 ==

== ENCOUNTER 2019-08-06 15:21 | Inpatient (IN) | payer MEDICARE, BC ==
[2019-08-06] MEDS ORDERED: PANTOPRAZOLE 40 MG/10 ML VIAL IVP STA (15:57)
[2019-08-06] MEDS ORDERED: ONDANSETRON 4 MG/2 ML VIAL IVP STA (15:57)
[2019-08-06] MEDS ORDERED: HYDROmorphone 0.5 MG/0.5 ML SYRINGE IVP STA (15:57)
[2019-08-06] MEDS ORDERED: SODIUM CHLORIDE 0.9% 1,000 ML IV STA (15:57)
--- NOTE | 2019-08-06 16:03 | ED ---
General Adult HPI - General Chief complaint: Abdominal Pain Stated complaint: Abd Pain Time Seen by Provider: 08/06/19 15:44 Source: patient, family, EMS, RN notes reviewed Mode of arrival: EMS Limitations: no limitations - History of Present Illness Initial comments: Patient is a pleasant [age]-year-old male presenting to the emergency Department with complaints of abdominal discomfort. Symptoms have progressed over months. Patient does have history of pancreatic cancer with Whipple surgery done in 2017. Patient then had radiation therapy with Dr. Narayanan. Patient also had ischemic bowel surgery 6 weeks ago. Patient had computed tomography scan last 1 week ago that was presented to Dr. Narayanan. Patient has complaints of progressive abdominal discomfort. Abdominal discomfort has not significantly increased over the past few days or week however has slowly worsened. 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 Patient has had decreased oral intake especially over the past month. Patient has lost approximately 20-25 pounds over the past month. Patient has scheduled appointment to see Dr. Warren today. Patient is feeling very fatigued and generally weak - Related Data Home Medications Medication Instructions Recorded Confirmed Atorvastatin [Lipitor] 80 mg PO 1600 04/10/15 07/29/16 Diazepam [Valium] 10 mg PO DAILY PRN 04/10/15 07/29/16 Terazosin [Hytrin] 2 mg PO 1600 04/10/15 07/29/16 Cholecalciferol [Vitamin D3] 2,000 unit PO DAILY 09/28/15 07/29/16 Enoxaparin [Lovenox] 70 units SQ BID 07/25/16 07/29/16 INSULIN LISPRO (HumaLOG) [HumaLOG] 0 units SQ QID 07/25/16 07/29/16 Insulin Glargine [Lantus] 20 unit SQ QAM 07/25/16 07/29/16 Lipase/Protease/Amylase [Jose J Portillo 1 each PO TID 07/25/16 07/29/16 6,000 Units Capsule] Pantoprazole Sodium [Protonix] 40 mg PO QAM 07/25/16 07/29/16 Previous Rx's Medication Instructions Recorded Ofloxacin 0.3% Ophth Soln [Ocuflox 10 drops LEFT EAR BID #5 ml NS 07/29/16 Ophth Soln] Allergies Allergy/AdvReac Type Severity Reaction Status Date / Time No Known Allergies Allergy Verified 08/06/19 15:52 Review of Systems ROS Statement: Those systems with pertinent positive or pertinent negative responses have been documented in the HPI. ROS Other: All systems not noted in ROS Statement are negative. Constitutional: Denies: fever Eyes: Denies: eye pain ENT: Denies: ear pain Respiratory: Denies: cough, dyspnea Cardiovascular: Denies: chest pain Endocrine: Reports: fatigue Gastrointestinal: Reports: as per HPI, abdominal pain, nausea Genitourinary: Denies: dysuria Musculoskeletal: Denies: back pain Skin: Denies: rash Neurological: Denies: weakness Past Medical History Past Medical History: Cancer, Diabetes Mellitus, Deep Vein Thrombosis (DVT), Hearing Disorder / Deafness, Hyperlipidemia, Myocardial Infarction (VT), Musculo skeletal Disorder, Osteoarthritis (OA), Pneumonia Additional Past Medical History / Comment(s): PNEUMONIA 04/10/15, HAS ABDOMINAL AORTIC ANEURYSM- DR. JOHNSON, CONSTIPATION, ARTHRITIS IN NECK & LOWER BACK, CHRONIC LEFT EAR INFECTIONS. PANCREATIC CANCER, ON CHEMO LAST DONE ON 07/12/16. DVT RIGHT LEG JUNE 04. DVT AFTER FEEDING TUBE REMOVED MAR 2016. CURRENTLY HAS PORT A CATH NEAR RIGHT SHOULDER. SEPSIS AND CELLULITIS MAY 2016. HARD OF HEARING BILATERALLY. Last Myocardial Infarction Date:: 1988 History of Any Multi-Drug Resistant Organisms: None Reported Past Surgical History: Ear Surgery, Heart Catheterization Additional Past Surgical History / Comment(s): CERVICAL FUSION X 2, TUBE IN LEFT EAR JUNE 2015, HEART CATH WITH BALLOONING 1988. FEEDING TUBE AND PICC LINE - REMOVED MAR 2016. PORT A CATH BY RIGHT SHOULDER. WHIPPLE PROCEDURE MAR 07 2016, PANCREATIC CANCER. Past Anesthesia/Blood Transfusion Reactions: No Reported Reaction Past Psychological History: No Psychological Hx Reported Smoking Status: Former smoker Past Alcohol Use History: None Reported Past Drug Use History: None Reported - Past Family History Mother Family Medical History: Diabetes Mellitus Father Family Medical History: Cancer Additional Family Medical History / Comment(s): LIVER CA General Exam Limitations: no limitations General appearance: alert, in no apparent distress Head exam: Present: normocephalic Eye exam: Present: normal appearance, PERRL ENT exam: Present: normal oropharynx Neck exam: Present: normal inspection Respiratory exam: Present: normal lung sounds bilaterally Cardiovascular Exam: Present: regular rate, normal rhythm Expanded Peripheral pulses: 2+: Dorsalis Pedis (R), Dorsalis Pedis (L) GI/Abdominal exam: Present: soft, tenderness (Mild diffuse tenderness to palpation), normal bowel sounds. Absent: distended, guarding, rebound, rigid, pulsatile mass Extremities exam: Present: normal inspection Neurological exam: Present: alert. Absent: motor sensory deficit Psychiatric exam: Present: normal affect, normal mood Skin exam: Present: normal color Course Vital Signs 08/06/19 08/06/19 08/06/19 15:45 16:05 16:21 Temperature 97.8 F Pulse Rate 18 L 83 Respiratory 16 Rate Blood Pressure 143/91 132/90 O2 Sat by Pulse 99 Oximetry 08/06/19 17:47 Temperature Pulse Rate 78 Respiratory 12 Rate Blood Pressure 108/75 O2 Sat by Pulse 98 Oximetry - Reevaluation(s) Reevaluation #1: 08/06/19 16:03 Patient and both state that patient does have a computed tomography scan 1 week ago and symptoms have not significantly worsened since that time and did not feel repeat computed tomography scan is necessary. EKG Findings - EKG Comments: EKG Findings:: Sinus rhythm with premature complexes present. Rate 113. QRS 70. ND 140. QT 356. QTc 48. Left axis. Low risk voltage. No acute ST change. Medical Decision Making - Medical Decision Making Patient reevaluated and feels somewhat better with medications. Abdomen remained soft and patient still has mild to moderate diffuse tenderness. Patient and family do request admission for pain control. Case was discussed with Dr. Clarke who was aware of this patient. He recommends medicine admission and changing final patch to 50 g as well as when necessary morphine 2 mg every 3 hours. Patient and family are updated. Case was also discussed in detail with Dr. Morales, who will admit covering for hospital call - Lab Data Result diagrams: 08/06/19 16:28 08/06/19 16:28 Lab Results 08/06/19 08/06/19 08/06/19 Range/Units 16:28 16:28 16:28 WBC 8.5 (3.8-10.6) k/uL RBC 4.72 (4.30-5.90) m/uL Hgb 15.3 (13.0-17.5) gm/dL Hct 48.2 (39.0-53.0) % MCV 102.1 H (80.0-100.0) fL MCH 32.5 (25.0-35.0) pg MCHC 31.9 (31.0-37.0) g/dL RDW 14.0 (11.5-15.5) % Plt Count 264 (150-450) k/uL Neutrophils % 75 % Lymphocytes % 16 % Monocytes % 6 % Eosinophils % 1 % Basophils % 0 % Neutrophils # 6.4 (1.3-7.7) k/uL Lymphocytes # 1.3 (1.0-4.8) k/uL Monocytes # 0.5 (0-1.0) k/uL Eosinophils # 0.1 (0-0.7) k/uL Basophils # 0.0 (0-0.2) k/uL Macrocytosis Slight PT (9.0-12.0) sec INR (<1.2) APTT (22.0-30.0) sec Sodium 130 L (137-145) mmol/L Potassium 5.4 H (3.5-5.1) mmol/L Chloride 95 L (98-107) mmol/L Carbon Dioxide 28 (22-30) mmol/L Anion Gap 7 mmol/L BUN 14 (9-20) mg/dL Creatinine 0.53 L (0.66-1.25) mg/dL Est GFR (CKD-EPI)AfAm >90 (>60 ml/min/1.73 sqM) Est GFR (CKD-EPI)NonAf >90 (>60 ml/min/1.73 sqM) Glucose 169 H (74-99) mg/dL Calcium 9.4 (8.4-10.2) mg/dL Total Bilirubin 0.9 (0.2-1.3) mg/dL AST 30 (17-59) U/L ALT 18 (4-49) U/L Alkaline Phosphatase 96 (38-126) U/L Total Protein 6.5 (6.3-8.2) g/dL Albumin 3.8 (3.5-5.0) g/dL Amylase 53 (30-110) U/L Lipase <10 L (23-300) U/L Urine Color Yellow Urine Appearance Clear (Clear) Urine pH 6.5 (5.0-8.0) Ur Specific Olden 1.015 (1.001-1.035) Urine Protein Trace H (Negative) Urine Glucose (UA) Negative (Negative) Urine Ketones Negative (Negative) Urine Blood Negative (Negative) Urine Nitrite Negative (Negative) Urine Bilirubin Negative (Negative) Urine Urobilinogen <2.0 (<2.0) mg/dL Ur Leukocyte Esterase Negative (Negative) 08/06/19 Range/Units 16:28 WBC (3.8-10.6) k/uL RBC (4.30-5.90) m/uL Hgb (13.0-17.5) gm/dL Hct (39.0-53.0) % MCV (80.0-100.0) fL MCH (25.0-35.0) pg MCHC (31.0-37.0) g/dL RDW (11.5-15.5) % Plt Count (150-450) k/uL Neutrophils % % Lymphocytes % % Monocytes % % Eosinophils % % Basophils % % Neutrophils # (1.3-7.7) k/uL Lymphocytes # (1.0-4.8) k/uL Monocytes # (0-1.0) k/uL Eosinophils # (0-0.7) k/uL Basophils # (0-0.2) k/uL Macrocytosis PT 10.3 (9.0-12.0) sec INR 1.0 (<1.2) APTT 22.4 (22.0-30.0) sec Sodium (137-145) mmol/L Potassium (3.5-5.1) mmol/L Chloride (98-107) mmol/L Carbon Dioxide (22-30) mmol/L Anion Gap mmol/L BUN (9-20) mg/dL Creatinine (0.66-1.25) mg/dL Est GFR (CKD-EPI)AfAm (>60 ml/min/1.73 sqM) Est GFR (CKD-EPI)NonAf (>60 ml/min/1.73 sqM) Glucose (74-99) mg/dL Calcium (8.4-10.2) mg/dL Total Bilirubin (0.2-1.3) mg/dL AST (17-59) U/L ALT (4-49) U/L Alkaline Phosphatase (38-126) U/L Total Protein (6.3-8.2) g/dL Albumin (3.5-5.0) g/dL Amylase (30-110) U/L Lipase (23-300) U/L Urine Color Urine Appearance (Clear) Urine pH (5.0-8.0) Ur Specific Olden (1.001-1.035) Urine Protein (Negative) Urine Glucose (UA) (Negative) Urine Ketones (Negative) Urine Blood (Negative) Urine Nitrite (Negative) Urine Bilirubin (Negative) Urine Urobilinogen (<2.0) mg/dL Ur Leukocyte Esterase (Negative) - Radiology Data Radiology results: image reviewed (Abdominal x-ray shows no acute process) Disposition Clinical Impression: Intractable abdominal pain, Pancreatic cancer Disposition: ADMITTED IP TO THIS HOSP Is patient prescribed a controlled substance at d/c from ED?: No Referrals: Brando Chapman DO [Primary Care Provider] - 1-2 days Decision Time: 18:57
[2019-08-06 16:43] LABS: Basophils % (A) 0 %; Eosinophils # (A) 0.1 k/uL (0-0.7); Eosinophils % (A) 1 %; HCT 48.2 % (39.0-53.0); HGB 15.3 gm/dL (13.0-17.5); Lymphocytes # (A) 1.3 k/uL (1.0-4.8); Lymphocytes % (A) 16 %; MCH 32.5 pg (25.0-35.0); MCHC 31.9 g/dL (31.0-37.0); MCV 102.1 fL (80.0-100.0); Macrocytosis Slight; Mean Platelet Volume 7.9; Monocytes # (A) 0.5 k/uL (0-1.0); Monocytes % (A) 6 %; Neutrophils # (A) 6.4 k/uL (1.3-7.7); Neutrophils % (A) 75 %; Platelet Count 264 k/uL (150-450); RBC 4.72 m/uL (4.30-5.90); WBC 8.5 k/uL (3.8-10.6)
[2019-08-06 16:45] LABS: Appearance,Urine Clear (Clear); Bilirubin,Urine Negative (Negative); Blood,Urine Negative (Negative); Color,Urine Yellow; Glucose,Urine (UA) Negative (Negative); Ketones,Urine Negative (Negative); Leukocyte Esterase,Urine Negative (Negative); Nitrite,Urine Negative (Negative); PH, Urine 6.5 (5.0-8.0); Protein,Urine Trace (Negative); Specific Gravity,Urine 1.015 (1.001-1.035); Urobilinogen,Urine <2.0 mg/dL (<2.0)
[2019-08-06 16:52] LABS: ALT 18 U/L (4-49); AST 30 U/L (17-59); African American GFR (CKD) >90 (>60 ml/min/1.73 sqM); Albumin 3.8 g/dL (3.5-5.0); Alkaline Phosphatase 96 U/L (38-126); Amylase 53 U/L (30-110); Anion Gap 7 mmol/L; Blood Urea Nitrogen 14 mg/dL (9-20); Calcium 9.4 mg/dL (8.4-10.2); Carbon Dioxide 28 mmol/L (22-30); Chloride 95 mmol/L (98-107); Glucose 169 mg/dL (74-99); Non-African American GFR(CKD) >90 (>60 ml/min/1.73 sqM); Partial Thromboplastin Time 22.4 sec (22.0-30.0); Prothrombin Time 10.3 sec (9.0-12.0); Sodium 130 mmol/L (137-145); Total Bilirubin 0.9 mg/dL (0.2-1.3); Total Protein 6.5 g/dL (6.3-8.2)
[2019-08-06 16:53] LABS: Potassium 5.4 mmol/L (3.5-5.1)
--- NOTE | 2019-08-06 17:34 | XR ---
EXAMINATION TYPE: XR KUB DATE OF EXAM: 08/06/2019 COMPARISON: 02/06/2016 HISTORY: Abdominal pain TECHNIQUE: 2 views upright FINDINGS: There is no sign of intestinal obstruction or pneumoperitoneum. Fecal pattern is normal. Gale ng bases are clear. Abdominal aorta is atheromatous. There are no pathologic calcifications over the kidneys. IMPRESSION: Nonacute abdomen.
[2019-08-06] MEDS ORDERED: ONDANSETRON 4 MG/2 ML VIAL IVP PRN (18:57)
[2019-08-06] MEDS ORDERED: NALOXONE 0.4 MG/ML 1 ML VIAL IV PRN (18:57)
[2019-08-06] MEDS ORDERED: LIPASE 5,000/PROTEASE 17,000/AMYLASE 24,000 PO STA (19:41)
[2019-08-06] MEDS: SODIUM CHLORIDE 0.9% 1,000 ML IV SCH (19:46)
--- NOTE | 2019-08-06 20:29 | P.HPIM ---
History of Present Illness H&P Date: 08/06/19 The patient is a 69-year-old male with a PMH of pancreatic cancer status post Whipple's with radiation and chemotherapy in 2016, following with private oncologist in [place], Type 2 DM, Hx of RUE DVT (on Eliquis), and hyperlipidemia presented to the ED with complaints of intractable abdominal pain and weight loss. History supplemented by the at the bedside. Patient notes that his pain is diffuse, now constant, 7-8 out of 10, with no alleviating or exacerbating features, and dull in nature, gradually worsening since january 2019. He was started on fentanyl patch by his oncologist, though he reports only minimal improvements in his pain. He also reports that 20-25 pound weight loss over the last 3 months. The patient has also undergone multiple colonoscopies in March 2019 and reportedly has 2 large polyps in his right colon. 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 They have been trying to initiate treatment with chemotherapy though were unable to due to the Covid situation and are generally unhappy with their oncologist and thereby wished to follow up at [facility]. The patient had his first appointment at [facility] earlier today though was told by his PCP to come to the emergency room due to ongoing pain. The patient denied nausea, vomiting, diarrhea. He denied chest pain, shortness of breath, fever, chills, cough. In the ED, KUB x-ray was unremarkable, UA unremarkable, with EKG showing sinus rhythm at 113 bpm with PVCs and left axis deviation. Laboratory evaluation revealed a sodium of 130, potassium of 5.4 (hemolyzed), chloride 95, BUN 14, creatinine 0.53, glucose 169, WBC count 8.5, hemoglobin 15.3, platelets 264, lipase less than 10. Review of Systems Pertinent positives and negatives as discussed in HPI, a complete review of systems was performed and all other systems are negative. Past Medical History Past Medical History: Cancer, Diabetes Mellitus, Deep Vein Thrombosis (DVT), Hearing Disorder / Deafness, Hyperlipidemia, Myocardial Infarction (SD), Musculoskeletal Disorder, Osteoarthritis (OA), Pneumonia Additional Past Medical History / Comment(s): PNEUMONIA 04/10/15, HAS ABDOMINAL AORTIC ANEURYSM- DR. JOHNSON, CONSTIPATION, ARTHRITIS IN NECK & LOWER BACK, CHRONIC LEFT EAR INFECTIONS. PANCREATIC CANCER, ON CHEMO LAST DONE ON 07/12/16. DVT RIGHT LEG JUNE 04. DVT AFTER FEEDING TUBE REMOVED MAR 2016. CURRENTLY HAS PORT A CATH NEAR RIGHT SHOULDER. SEPSIS AND CELLULITIS MAY 2016. HARD OF HEARING BILATERALLY. Last Myocardial Infarction Date:: 1988 History of Any Multi-Drug Resistant Organisms: None Reported Past Surgical History: Ear Surgery, Heart Catheterization Additional Past Surgical History / Comment(s): CERVICAL FUSION X 2, TUBE IN LEFT EAR JUNE 2015, HEART CATH WITH BALLOONING 1988. FEEDING TUBE AND PICC LINE - REMOVED MAR 2016. PORT A CATH BY RIGHT SHOULDER. WHIPPLE PROCEDURE MAR 07 2016, PANCREATIC CANCER. Past Anesthesia/Blood Transfusion Reactions: No Reported Reaction Past Psychological History: No Psychological Hx Reported Smoking Status: Former smoker Past Alcohol Use History: None Reported Past Drug Use History: None Reported - Past Family History Mother Family Medical History: Diabetes Mellitus Father Family Medical History: Cancer Additional Family Medical History / Comment(s): LIVER CA Medications and Allergies Home Medications Medication Instructions Recorded Confirmed Type Atorvastatin [Lipitor] 80 mg PO HS 04/10/15 08/06/19 History Diazepam [Valium] 10 mg PO DAILY PRN 04/10/15 08/06/19 History Cholecalciferol [Vitamin D3] 2,000 unit PO DAILY 09/28/15 08/06/19 History Insulin Glargine [Lantus] 20 unit SQ QAM 07/25/16 08/06/19 History Lipase/Protease/Amylase [Jose J Dr 1 - 2 cap PO AC-TID 07/25/16 08/06/19 History 6,000 Units Capsule] Pantoprazole Sodium [Protonix] 40 mg PO BID 07/25/16 08/06/19 History Acetaminophen [Tylenol Extra 500 mg PO DAILY PRN 08/06/19 08/06/19 History Strength] Apixaban [Eliquis] 2.5 mg PO BID 08/06/19 08/06/19 History Docusate [Colace] 100 mg PO DAILY 08/06/19 08/06/19 History Insulin Aspart [NovoLOG Flexpen] 8 units SQ ACHS 08/06/19 08/06/19 History Lisinopril [Zestril] 2.5 mg PO DAILY 08/06/19 08/06/19 History Pramipexole [Mirapex] 0.25 mg PO BID 08/06/19 08/06/19 History Terazosin HCl 5 mg PO HS 08/06/19 08/06/19 History fentaNYL 25MCG/HR PATCH [Duragesic 25 mcg TRANSDERM Q72H 08/06/19 08/06/19 History 25MCG/HR] Allergies Allergy/AdvReac Type Severity Reaction Status Date / Time No Known Allergies Allergy Verified 08/06/19 21:18 Physical Exam Vitals: Vital Signs Temp Pulse Resp BP Pulse Ox 08/06/19 17:47 78 12 108/75 98 08/06/19 16:21 132/90 08/06/19 16:05 83 08/06/19 15:45 97.8 F 18 L 16 143/91 99 Intake and Output 08/06/19 08/06/19 08/06/19 06:59 14:59 22:59 Other: Weight 57.153 kg General: non toxic, no distress, appears at stated age, normal weight Derm: no unusual rashes/lesions no unusual ecchymoses, warm, dry Head: atraumatic, normocephalic, symmetric Eyes: EOMI, no lid lag, anicteric sclera, pupils equal round reactive to light ENT: Nose and ears atraumatic, no thrush, no pharyngeal erythema Neck: No thyromegaly, no cervical lymphadenopathy, trachea midline, supple Mouth: no lip lesion, mucus membranes moist Cardiovascular: S1S2 reg, no murmur, positive posterior tibial pulse bilateral, no edema, capillary refill less than 2 seconds Lungs: CTA bilateral, no rhonchi, no rales , no accessory muscle use Abdominal: soft, diffuse mild tenderness, no guarding, no appreciable organomegaly, normal bowel sounds Ext: no gross muscle atrophy, muscle strength 5 out of 5 in all 4 extremities grossly, no contractures, Neuro: CN II-XI grossly intact, light touch intact all 4 extremities, finger to nose within normal limits, Psych: Alert, oriented, appropriate affect Results CBC & Chem 7: 08/06/19 16:28 08/06/19 16:28 Labs: Abnormal Lab Results - Last 24 Hours (Table) 08/06/19 08/06/19 08/06/19 Range/Units 16:28 16:28 16:28 MCV 102.1 H (80.0-100.0) fL Sodium 130 L (137-145) mmol/L Potassium 5.4 H (3.5-5.1) mmol/L Chloride 95 L (98-107) mmol/L Creatinine 0.53 L (0.66-1.25) mg/dL Glucose 169 H (74-99) mg/dL Lipase <10 L (23-300) U/L Urine Protein Trace H (Negative) Assessment and Plan Plan: Abdominal pain, weight loss with history of pancreas CA and recent new mass -Oncology consulted - recommended pain control with fentanyl patch (changing from 25 g to 50 g) and morphine 2 mg every 3 hourly -Dietitian consult -Obtain records for recent imaging in am Hyponatremia -Possibly secondary to malnutrition along with ongoing malignancy -Monitor for now History of right upper extremity DVT -Continue with Eliquis home dose Type II DM -Lispro sliding scale with blood glucose monitoring -C/w home insulin regimen Hyperlipidemia -Continue with home med DVT prophylaxis -Eliquis The patient is admitted with an anticipated less than 2 midnight stay for hugo luation of abdominal pain CODE STATUS: No Code Discussed with: Patient Anticipated discharge date: 1-[address]: Home A total of 40 minutes was spent on the care of this complex patient more than 50% of the time was spent in counseling and care coordination.
[2019-08-06 20:30] LABS: Glucose,Whole Blood 128 mg/dL (75-99)
[2019-08-06 21:40] LABS: Glucose,Whole Blood 122 mg/dL (75-99)
[2019-08-06] MEDS: MORPHINE SULFATE 4 MG/ML SYRINGE IV PRN (22:05)
[2019-08-06] MEDS: INSULIN ASPART (NovoLOG) 100 UNIT/ML VIAL SQ SCH (23:17)
[2019-08-07] MEDS: MORPHINE SULFATE 4 MG/ML SYRINGE IV PRN ×4 (03:54→15:15)
[2019-08-07] MEDS ORDERED: DIAZEPAM 5 MG TAB PO PRN (06:00)
[2019-08-07 07:25] LABS: Glucose,Whole Blood 116 mg/dL (75-99)
[2019-08-07] MEDS ORDERED: INSULIN ASPART (NovoLOG) 100 UNIT/ML VIAL SQ SCH (07:30)
[2019-08-07] MEDS: PANTOPRAZOLE 40 MG TABLET PO SCH ×2 (08:27→21:14)
[2019-08-07] MEDS: INSULIN DETEMIR (LEVEMIR) 100 UNIT/ML SYR SQ SCH (08:27)
[2019-08-07] MEDS: INSULIN ASPART (NovoLOG) 100 UNIT/ML VIAL SQ SCH ×8 (08:27→21:18)
[2019-08-07] MEDS: CHOLECALCIFEROL 1,000 UNIT TAB PO SCH (08:28)
[2019-08-07] MEDS: DOCUSATE 100 MG CAP PO SCH (08:28)
[2019-08-07] MEDS: LIPASE 5,000/PROTEASE 17,000/AMYLASE 24,000 PO SCH ×3 (08:28→18:06)
[2019-08-07] MEDS: APIXABAN 2.5 MG TABLET PO SCH ×2 (08:28→21:14)
[2019-08-07] MEDS: PRAMIPEXOLE 0.25 MG TAB PO SCH ×2 (08:29→21:13)
[2019-08-07] MEDS: LISINOPRIL 2.5 MG TAB PO SCH (08:32)
[2019-08-07] MEDS ORDERED: INSULIN DETEMIR (LEVEMIR) 100 UNIT/ML SYR SQ SCH (09:00)
[2019-08-07] MEDS ORDERED: PANTOPRAZOLE 40 MG/10 ML VIAL IV SCH (09:00)
[2019-08-07 09:28] LABS: HCT 35.3 % (39.0-53.0); MCH 34.5 pg (25.0-35.0); MCHC 33.2 g/dL (31.0-37.0); MCV 103.8 fL (80.0-100.0); Macrocytosis Slight; Mean Platelet Volume 8.2; Platelet Count 212 k/uL (150-450)
[2019-08-07] MEDS: SODIUM CHLORIDE 0.9% 1,000 ML IV SCH (09:37)
[2019-08-07 09:45] LABS: HGB 11.7 gm/dL (13.0-17.5)
[2019-08-07 09:51] LABS: African American GFR (CKD) >90 (>60 ml/min/1.73 sqM); Anion Gap 4 mmol/L; Blood Urea Nitrogen 13 mg/dL (9-20); Calcium 8.7 mg/dL (8.4-10.2); Carbon Dioxide 27 mmol/L (22-30); Chloride 99 mmol/L (98-107); Glucose 98 mg/dL (74-99); Magnesium 1.7 mg/dL (1.6-2.3); Non-African American GFR(CKD) >90 (>60 ml/min/1.73 sqM); Phosphorus 3.9 mg/dL (2.5-4.5); Potassium 4.4 mmol/L (3.5-5.1); Sodium 130 mmol/L (137-145)
--- NOTE | 2019-08-07 11:14 | P.CONS ---
History of Present Illness - Reason for Consult Consult date: 08/07/19 Neoplasm related pain, Pancreatic ca - History of Present Illness the patient is a 69-year-old white male with an extensive past oncologic history. He was diagnosed with localized pancreatic cancer in 2016 and was treated with Whipple's procedure at [facility], followed by adjuvant chemotherapy with gemcitabine and then adjuvant chemoradiation with oral Xeloda as a chemo arm. The patient remained in remission until the spring of this year. He then developed problems with abdominal pain and was admitted to [facility] in early 06/29. At that time he was found to have ischemic bowel and underwent surgery for the same. 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 The patient had a somewhat prolonged course and actually went to the [facility] where this mass was biopsied. Reportedly the biopsy was positive for recurrent pancreatic malignancy but we do not have the actual pathology report available yet. The patient wanted to have further treatment here, closer to home and was supposed to be seen in the office yesterday. However the patient has been having diffuse abdominal pain since surgery, with progressive increase. He had been on fentanyl 25 g at home but this was not controlling his pain. He therefore came into the emergency room. Case was discussed in detail with the ER physician and the patient was admitted for further management. Review of Systems Constitutional: Reports chronic pain, Reports poor appetite, Reports weakness, Reports weight loss Eyes: denies blurred vision, denies pain Ears: deny: decreased hearing, ear discharge, earache, tinnitus Ears, nose, mouth and throat: Denies headache, Denies sore throat Cardiovascular: Reports decreased exercise tolerance Respiratory: Denies cough Gastrointestinal: Reports abdominal pain Genitourinary: Reports as per HPI Musculoskeletal: Reports muscle weakness Integumentary: Denies pruritus, Denies rash Neurological: Reports weakness Psychiatric: Denies anxiety, Denies depression Endocrine: Reports fatigue, Reports weight change Hematologic/Lymphatic: Reports as per HPI Past Medical History Past Medical History: Cancer, Diabetes Mellitus, Deep Vein Thrombosis (DVT), Hearing Disorder / Deafness, Hyperlipidemia, Myocardial Infarction ([place]), Musculoskeletal Disorder, Osteoarthritis (OA), Pneumonia Additional Past Medical History / Comment(s): PNEUMONIA 04/10/15, HAS ABDOMINAL AORTIC ANEURYSM- DR. JOHNSON, CONSTIPATION, ARTHRITIS IN NECK & LOWER BACK, CHRONIC LEFT EAR INFECTIONS. PANCREATIC CANCER, ON CHEMO LAST DONE ON 07/12/16. DVT RIGHT LEG JUNE 04. DVT AFTER FEEDING TUBE REMOVED MAR 2016. CURRENTLY HAS PORT A CATH NEAR RIGHT SHOULDER. SEPSIS AND CELLULITIS MAY 2016. HARD OF HEARING BILATERALLY. Last Myocardial Infarction Date:: 1988 History of Any Multi-Drug Resistant Organisms: None Reported Past Surgical History: Ear Surgery, Heart Catheterization Additional Past Surgical History / Comment(s): CERVICAL FUSION X 2, TUBE IN LEFT EAR JUNE 2015, HEART CATH WITH BALLOONING 1988. FEEDING TUBE AND PICC LINE - REMOVED MAR 2016. PORT A CATH BY RIGHT SHOULDER. WHIPPLE PROCEDURE MAR 07 2016, PANCREATIC CANCER. Past Anesthesia/Blood Transfusion Reactions: No Reported Reaction Past Psychological History: No Psychological Hx Reported Smoking Status: Former smoker Past Alcohol Use History: None Reported Past Drug Use History: None Reported - Past Family History Mother Family Medical History: Diabetes Mellitus Father Family Medical History: Cancer Additional Family Medical History / Comment(s): LIVER CA Medications and Allergies Home Medications Medication Instructions Recorded Confirmed Type Atorvastatin [Lipitor] 80 mg PO HS 04/10/15 08/06/19 History Diazepam [Valium] 10 mg PO DAILY PRN 04/10/15 08/06/19 History Cholecalciferol [Vitamin D3] 2,000 unit PO DAILY 09/28/15 08/06/19 History Insulin Glargine [Lantus] 20 unit SQ QAM 07/25/16 08/06/19 History Lipase/Protease/Amylase [Jose J Dr 1 - 2 cap PO AC-TID 07/25/16 08/06/19 History 6,000 Units Capsule] Pantoprazole Sodium [Protonix] 40 mg PO BID 07/25/16 08/06/19 History Acetaminophen [Tylenol Extra 500 mg PO DAILY PRN 08/06/19 08/06/19 History Strength] Apixaban [Eliquis] 2.5 mg PO BID 08/06/19 08/06/19 History Docusate [Colace] 100 mg PO DAILY 08/06/19 08/06/19 History Insulin Aspart [NovoLOG Flexpen] 8 units SQ ACHS 08/06/19 08/06/19 History Lisinopril [Zestril] 2.5 mg PO DAILY 08/06/19 08/06/19 History Pramipexole [Mirapex] 0.25 mg PO BID 08/06/19 08/06/19 History Terazosin HCl 5 mg PO HS 08/06/19 08/06/19 History fentaNYL 25MCG/HR PATCH [Duragesic 25 mcg TRANSDERM Q72H 08/06/19 08/06/19 History 25MCG/HR] Allergies Allergy/AdvReac Type Severity Reaction Status Date / Time No Known Allergies Allergy Verified 08/06/19 21:18 Physical Exam Vitals: Vital Signs Temp Pulse Pulse Resp BP BP Pulse Ox 08/07/19 05:00 98.1 F 62 18 136/65 97 08/06/19 23:00 61 08/06/19 21:00 98.1 F 61 18 182/93 98 08/06/19 20:30 97.7 F 08/06/19 20:24 93 13 116/94 99 08/06/19 17:47 78 12 108/75 98 08/06/19 16:21 132/90 08/06/19 16:05 83 08/06/19 15:45 97.8 F 18 L 16 143/91 99 Intake and Output 08/06/19 08/07/19 08/07/19 22:59 06:59 14:59 Intake Total 300 Balance 300 Intake: Oral 300 Other: Voiding Method Toilet Urinal # Voids 1 2 # Bowel Movements 0 Weight 57.153 kg - Constitutional General appearance: no acute distress - EENT Eyes: EOMI, PERRLA ENT: hearing grossly normal, normal oropharynx - Neck Neck: no lymphadenopathy - Respiratory Respiratory: bilateral: CTA - Cardiovascular Rhythm: regular Heart sounds: normal: S1, S2 - Gastrointestinal General gastrointestinal: normal bowel sounds, soft - Integumentary Integumentary: normal - Neurologic Neurologic: CNII-XII intact - Musculoskeletal Musculoskeletal: generalized weakness, strength equal bilaterally - Psychiatric Psychiatric: A&O x's 3, appropriate affect Results CBC & Chem 7: 08/07/19 08:35 08/07/19 08:35 Labs: Abnormal Lab Results - Last 24 Hours (Table) 08/06/19 08/06/19 08/06/19 Range/Units 16:28 16:28 16:28 RBC (4.30-5.90) m/uL Hgb (13.0-17.5) gm/dL Hct (39.0-53.0) % MCV 102.1 H (80.0-100.0) fL Sodium 130 L (137-145) mmol/L Potassium 5.4 H (3.5-5.1) mmol/L Chloride 95 L (98-107) mmol/L Creatinine 0.53 L (0.66-1.25) mg/dL Glucose 169 H (74-99) mg/dL POC Glucose (mg/dL) (75-99) mg/dL Lipase <10 L (23-300) U/L Urine Protein Trace H (Negative) 08/06/19 08/06/19 08/07/19 Range/Units 20:19 21:30 07:17 RBC (4.30-5.90) m/uL Hgb (13.0-17.5) gm/dL Hct (39.0-53.0) % MCV (80.0-100.0) fL Sodium (137-145) mmol/L Potassium (3.5-5.1) mmol/L Chloride (98-107) mmol/L Creatinine (0.66-1.25) mg/dL Glucose (74-99) mg/dL POC Glucose (mg/dL) 128 H 122 H 116 H (75-99) mg/dL Lipase (23-300) U/L Urine Protein (Negative) 08/07/19 08/07/19 Range/Units 08:35 08:35 RBC 3.40 L (4.30-5.90) m/uL Hgb 11.7 L D (13.0-17.5) gm/dL Hct 35.3 L (39.0-53.0) % MCV 103.8 H (80.0-100.0) fL Sodium 130 L (137-145) mmol/L Potassium (3.5-5.1) mmol/L Chloride (98-107) mmol/L Creatinine 0.54 L (0.66-1.25) mg/dL Glucose (74-99) mg/dL POC Glucose (mg/dL) (75-99) mg/dL Lipase (23-300) U/L Urine Protein (Negative) Comments: medical records from [facility] were reviewed in hospice including physician notes, computed tomography scan reports, operative notes, and original pathology report Chest x-ray: report reviewed CT scan - abdomen: report reviewed CT scan - pelvis: report reviewed Assessment and Plan (1) Intractable abdominal pain Narrative/Plan: the patient's pain is neoplasm related. 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 The patient was not controlled with his home medication regimen. The case was discussed with the ER physician on admission and his fentanyl patch has been increased to 50 g every 72 hours. He is also on IV morphine every 3 hours for breakthrough pain. We will continue to monitor response and adjust regimen as needed. Radiation oncology will be consulted to see the patient may benefit from palliative radiation to the area of recurrence. I will also consult the pain service as the patient could potentially be a good candidate for celiac plexus block. - Case discussed with the admitting service Current Visit: Yes Status: Acute Code(s): R10.9 - UNSPECIFIED ABDOMINAL PAIN SNOMED Code(s): 88037295 (2) Pancreatic cancer Narrative/Plan: diagnostic and therapeutic circumstances as described. The patient at this point appears to have localized recurrence. Patient will follow-up in the office with Dr. Warren on discharge for systemic therapy planning Current Visit: Yes Status: Acute Code(s): C25.9 - MALIGNANT NEOPLASM OF PANCREAS, UNSPECIFIED SNOMED Code(s): 524469804
[2019-08-07 11:43] LABS: Glucose,Whole Blood 115 mg/dL (75-99)
[2019-08-07] MEDS: oxyCODONE-APAP 7.5-325MG 1 EACH TAB PO PRN ×2 (11:59→18:06)
[2019-08-07 14:18] VITALS: BMI 19.7
--- NOTE | 2019-08-07 16:00 | P.PN ---
Subjective Progress Note Date: 08/07/19 (eh charting seen at 1130) Principal diagnosis: abdominal pain Patient is a 69-year-old male with recently discovered mass near then celiac plexus, prior pancreatic cancer in 2017 status post chemo, radiation, and Whipple's procedure, type 2 diabetes mellitus, history of right upper extremity DVT, and dyslipidemia who presented to the emergency department with complaints of intractable abdominal pain associated with weight loss. Apparently the patient had been prescribed Percocet along with his fentanyl patch secondary to his worsening abdominal pain. He had used all of his Percocet and appropriate timely fashion his pain began increasing and he therefore presented to the ER. Of note the patient is currently in the process of transitioning to [facility] for care and was supposed to be set up with a first time visit with Dr. Silva on 08/06/2019 but presented here secondary to pain. He was admitted for pain control. His fentanyl patch was increased and was started on IV morphine. Initial labs did show hyponatremia with a sodium of 1:30, pota ssium 5.4, glucose 169, for otherwise unremarkable. He had had a recent CT scan approximately one week ago and this was not repeated. Oncology was consulted. Patient seen and examined at bedside. He states that his pain is well- controlled with he initially took the morphine dose however as it nears the three-hour shira the morphine seems to wear off and his pain increases. He states that his nausea and vomiting are completely resolved. He states that he had been taking a fentanyl patch as well as Percocet at home however he was only given a prescription for 8 days worth of Percocet which did help but he ran out. He then represented with the same unchanged abdominal pain he has had since being diagnosed with a mass near the celiac plexus. Objective - Vital Signs Vital signs: Vital Signs Temp 98.1 F 08/07/19 05:00 Pulse 62 08/07/19 05:00 Resp 18 08/07/19 05:00 BP 136/65 08/07/19 05:00 Pulse Ox 97 08/07/19 05:00 Intake & Output 08/06/19 08/07/19 08/07/19 18:59 06:59 18:59 Intake Total 300 1100 Balance 300 1100 Weight 57.153 kg 57.153 kg 57.153 kg Intake: Intake, IV Titration 600 Amount Sodium Chloride 0.9% 1, 600 000 ml @ 75 mls/hr IV . [id number] [facility] Rx#:[id number] Oral 300 500 Other: Voiding Method Toilet Toilet Urinal Urinal # Voids 2 1 # Bowel Movements 0 - Exam General: non toxic, no distress, appears at stated age, gaunt, cachexia Derm: warm, dry Head: atraumatic, normocephalic, symmetric Eyes: EOMI, no lid lag, anicteric sclera Mouth: no lip lesion, mucus membranes moist Cardiovascular: S1S2 reg, no murmur, positive posterior tibial pulse bilateral, Lungs: CTA bilateral, no rhonchi, no rales , no accessory muscle use Abdominal: soft, + tender to palpation diffusely, no guarding, no appreciable organomegaly Ext: no gross muscle atrophy, no edema, no contractures Neuro: CN II-XI grossly intact, no focal neuro deficits Psych: Alert, oriented, appropriate affect - Labs CBC & Chem 7: 08/07/19 08:35 08/07/19 08:35 Labs: Abnormal Lab Results - Last 24 Hours (Table) 08/06/19 08/06/19 08/06/19 Range/Units 16:28 16:28 16:28 RBC (4.30-5.90) m/uL Hgb (13.0-17.5) gm/dL Hct (39.0-53.0) % MCV 102.1 H (80.0-100.0) fL Sodium 130 L (137-145) mmol/L Potassium 5.4 H (3.5-5.1) mmol/L Chloride 95 L (98-107) mmol/L Creatinine 0.53 L (0.66-1.25) mg/dL Glucose 169 H (74-99) mg/dL POC Glucose (mg/dL) (75-99) mg/dL Lipase <10 L (23-300) U/L Urine Protein Trace H (Negative) 08/06/19 08/06/19 08/07/19 Range/Units 20:19 21:30 07:17 RBC (4.30-5.90) m/uL Hgb (13.0-17.5) gm/dL Hct (39.0-53.0) % MCV (80.0-100.0) fL Sodium (137-145) mmol/L Potassium (3.5-5.1) mmol/L Chloride (98-107) mmol/L Creatinine (0.66-1.25) mg/dL Glucose (74-99) mg/dL POC Glucose (mg/dL) 128 H 122 H 116 H (75-99) mg/dL Lipase (23-300) U/L Urine Protein (Negative) 08/07/19 08/07/19 08/07/19 Range/Units 08:35 08:35 11:42 RBC 3.40 L (4.30-5.90) m/uL Hgb 11.7 L D (13.0-17.5) gm/dL Hct 35.3 L (39.0-53.0) % MCV 103.8 H (80.0-100.0) fL Sodium 130 L (137-145) mmol/L Potassium (3.5-5.1) mmol/L Chloride (98-107) mmol/L Creatinine 0.54 L (0.66-1.25) mg/dL Glucose (74-99) mg/dL POC Glucose (mg/dL) 115 H (75-99) mg/dL Lipase (23-300) U/L Urine Protein (Negative) Assessment and Plan Assessment: Intractable abdominal pain secondary to global malignancy with history of pancreatic cancer, new mass near the celiac plexus -Fentanyl patch increased to 50 g -Add back in home Percocet -Morphine for breakthrough pain -Oncology recommendations -Consult anesthesia for possible celiac block -Supportive care Anemia - unknown baseline - suspect patient was hemo-concentrated yesterday and that this is baseline - Repeat CBC now and in AM Hyponatremia -Suspect secondary to poor oral intake -IV fluids -Repeat in a.m. History of right upper extremity DVT -Continue with Eliquis. Diabetes mellitus type 2 - Levemir, novolog fixed and scale - follow BS - check A1C Severe protein calorie malnutrition - consult dietitian - supplements Dyslipidemia -Statin therapy Hyperkalemia, resolved DVT prophylaxis: Eliquis Discussed with: Patient, nursing, Dr. Clarke Anticipated discharge: 24-[address]: home A total of 45 minutes was spent on the care of this complex patient more than 50% of the time was spent in counseling and care coordination.
[2019-08-07 17:07] LABS: Glucose,Whole Blood 104 mg/dL (75-99)
[2019-08-07 17:18] LABS: HCT 32.7 % (39.0-53.0); HGB 10.5 gm/dL (13.0-17.5); MCH 33.2 pg (25.0-35.0); MCHC 32.2 g/dL (31.0-37.0); MCV 103.2 fL (80.0-100.0); Macrocytosis Slight; Platelet Count 183 k/uL (150-450); RBC 3.17 m/uL (4.30-5.90); RDW 13.8 % (11.5-15.5); WBC 7.8 k/uL (3.8-10.6)
[2019-08-07 20:37] LABS: Glucose,Whole Blood 114 mg/dL (75-99)
[2019-08-07] MEDS ORDERED: DOXAZOSIN 4 MG TAB PO SCH (21:00)
[2019-08-07] MEDS ORDERED: ATORVASTATIN 80 MG TAB PO SCH (21:00)
[2019-08-07 22:50] VITALS: RESP 18
[2019-08-08] MEDS: SODIUM CHLORIDE 0.9% 1,000 ML IV SCH ×2 (00:02→11:41)
[2019-08-08] MEDS: oxyCODONE-APAP 7.5-325MG 1 EACH TAB PO PRN ×4 (06:11→16:00)
[2019-08-08 07:04] LABS: Glucose,Whole Blood 136 mg/dL (75-99)
[2019-08-08 07:23] LABS: African American GFR (CKD) >90 (>60 ml/min/1.73 sqM); Anion Gap 3 mmol/L; Blood Urea Nitrogen 7 mg/dL (9-20); Calcium 8.3 mg/dL (8.4-10.2); Carbon Dioxide 31 mmol/L (22-30); Chloride 98 mmol/L (98-107); Glucose 105 mg/dL (74-99); Non-African American GFR(CKD) >90 (>60 ml/min/1.73 sqM); Sodium 132 mmol/L (137-145)
[2019-08-08] MEDS: INSULIN ASPART (NovoLOG) 100 UNIT/ML VIAL SQ SCH ×3 (07:36→11:40)
[2019-08-08 07:57] LABS: HCT 32.8 % (39.0-53.0); HGB 10.8 gm/dL (13.0-17.5); MCH 34.4 pg (25.0-35.0); MCHC 32.9 g/dL (31.0-37.0); MCV 104.7 fL (80.0-100.0); Macrocytosis Slight; Mean Platelet Volume 8.8; Platelet Count 197 k/uL (150-450); RBC 3.13 m/uL (4.30-5.90); WBC 6.9 k/uL (3.8-10.6)
[2019-08-08] MEDS: LISINOPRIL 2.5 MG TAB PO SCH (08:55)
[2019-08-08] MEDS: PANTOPRAZOLE 40 MG TABLET PO SCH (08:56)
[2019-08-08] MEDS: INSULIN DETEMIR (LEVEMIR) 100 UNIT/ML SYR SQ SCH (08:56)
[2019-08-08] MEDS: CHOLECALCIFEROL 1,000 UNIT TAB PO SCH (08:56)
[2019-08-08] MEDS: DOCUSATE 100 MG CAP PO SCH (08:56)
[2019-08-08] MEDS: PRAMIPEXOLE 0.25 MG TAB PO SCH (08:56)
[2019-08-08] MEDS: APIXABAN 2.5 MG TABLET PO SCH (08:56)
[2019-08-08] MEDS: LIPASE 5,000/PROTEASE 17,000/AMYLASE 24,000 PO SCH ×2 (08:56→11:38)
[2019-08-08 11:13] LABS: Glucose,Whole Blood 320 mg/dL (75-99)
[2019-08-08 12:15] VITALS: BP 106/65; PULSE 86; TEMP 97.8
[2019-08-08] MEDS ORDERED: INSULIN ASPART (NovoLOG) 100 UNIT/ML VIAL SQ SCH (12:30)
[2019-08-08 14:49] LABS: Glucose,Whole Blood 242 mg/dL (75-99)
--- NOTE | 2019-08-08 15:20 | P.DS ---
Providers Date of admission: 08/06/19 18:57 Expected date of discharge: 08/08/19 Attending physician: Leonor Boland MD Consults: 08/06/19 18:58 Consult Physician Routine Consulting Provider: Oj Narayanan Consult Reason/Comments: Oncological care Do you want consulting provider notified?: Yes Consult Physician Urgent Consulting Provider: Nino Clarke Consult Reason/Comments: oncological care Do you want consulting provider notified?: Yes Primary care physician: Brando Chapman Hospital Course: Discharge Diagnosis: Intractable abdominal pain secondary to malignancy with history of pancreatic cancer, 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 Apparently the patient had been prescribed Percocet along with his fentanyl patch secondary to his worsening abdominal pain. He had used all of his Percocet in an appropriate timely fashion and then his pain began increasing and he therefore presented to the ER. Of note the patient is currently in the process of transitioning to [facility] for care and was supposed to be set up with a first time visit with Dr. Silva on 08/06/2019 but presented here secondary to pain. He was admitted for pain control. His fentanyl patch was increased and was started on IV morphine. Initial labs did show hyponatremia with a sodium of 130, potassium 5.4, glucose 169, for otherwise unremarkable. He had had a recent CT scan approximately one week ago and this was not repeated. Oncology was consulted. His blood work improved. His pain improved with increasing his fentanyl patch and resuming his Percocet. Oncology would like to follow-up as an outpatient with the pain clinic for possible celiac block. He'll also see him in the clinic within the next 2 weeks for recheck on his pain regimen for chis chronic pain, and determining a plan of care. He will also follow-up with his primary care physician Dr. Chapman. Patient seen and examined at bedside. Pain is much improved from yesterday, feeling hungry, no nausea, no chest pain, no shortness of breath Vital signs reviewed and stable. General: non toxic, no distress, appears at stated age Derm: warm, dry Head: atraumatic, normocephalic, symmetric Eyes: EOMI, no lid lag, anicteric sclera Mouth: no lip lesion, mucus membranes moist Cardiovascular: S1S2 reg, no murmur, positive posterior tibial pulse bilateral, Lungs: CTA bilateral, no rhonchi, no rales , no accessory muscle use Abdominal: soft, nontender to palpation, no guarding, no appreciable organomegaly, scarring thin Ext: no gross muscle atrophy, no edema, no contractures Neuro: CN II-XI grossly intact, no focal neuro deficits Psych: Alert, oriented, appropriate affect A total of minutes of time were spent preparing this complex discharge summary . Patient Condition at Discharge: Stable Plan - Discharge Summary New Discharge Prescriptions: New fentaNYL 50MCG/HR PATCH [Duragesic 50MCG/HR] 1 patch TRANSDERM Q72H #5 patch oxyCODONE-APAP 7.5-325MG [Percocet 7.5-325 mg] 1 each PO Q4-6H PRN #75 tab PRN Reason: Moderate Pain Continue Diazepam [Valium] 10 mg PO DAILY PRN PRN Reason: Anxiety Atorvastatin [Lipitor] 80 mg PO HS Pramipexole [Mirapex] 0.25 mg PO BID Lisinopril [Zestril] 2.5 mg PO DAILY Terazosin HCl 5 mg PO HS Apixaban [Eliquis] 2.5 mg PO BID Discontinued Acetaminophen [Tylenol Extra Strength] 500 mg PO DAILY PRN PRN Reason: Pain fentaNYL 25MCG/HR PATCH [Duragesic 25MCG/HR] 25 mcg TRANSDERM Q72H No Action Cholecalciferol [Vitamin D3] 2,000 unit PO DAILY Insulin Glargine [Lantus] 20 unit SQ QAM Lipase/Protease/Amylase [Creon Dr 6,000 Units Capsule] 1 - 2 cap PO AC-TID Pantoprazole Sodium [Protonix] 40 mg PO BID Docusate [Colace] 100 mg PO DAILY Insulin Aspart [NovoLOG Flexpen] 8 units SQ ACHS Discharge Medication List Atorvastatin [Lipitor] 80 mg PO HS 04/10/15 [History] Diazepam [Valium] 10 mg PO DAILY PRN 04/10/15 [History] Cholecalciferol [Vitamin D3] 2,000 unit PO DAILY 09/28/15 [History] Insulin Glargine [Lantus] 20 unit SQ QAM 07/25/16 [History] Lipase/Protease/Amylase [Creon Dr 6,000 Units Capsule] 1 - 2 cap PO AC-TID 07/25/16 [History] Pantoprazole Sodium [Protonix] 40 mg PO BID 07/25/16 [History] Apixaban [Eliquis] 2.5 mg PO BID 08/06/19 [History] Docusate [Colace] 100 mg PO DAILY 08/06/19 [History] Insulin Aspart [NovoLOG Flexpen] 8 units SQ ACHS 08/06/19 [History] Lisinopril [Zestril] 2.5 mg PO DAILY 08/06/19 [History] Pramipexole [Mirapex] 0.25 mg PO BID 08/06/19 [History] Terazosin HCl 5 mg PO HS 08/06/19 [History] fentaNYL 50MCG/HR PATCH [Duragesic 50MCG/HR] 1 patch TRANSDERM Q72H #5 patch 08/08/19 [Rx] oxyCODONE-APAP 7.5-325MG [Percocet 7.5-325 mg] 1 each PO Q4-6H PRN #75 tab 08/08/19 [Rx] Follow up Appointment(s)/Referral(s): Brando Chapman DO [Primary Care Provider] - 1-2 days Alexandre Warren MD [STAFF PHYSICIAN] - 1 Week Discharge Disposition: HOME SELF-CARE
[2019-08-09 08:58] LABS: Hemoglobin A1C 6.8 % (4.0-6.0)
== END 2019-08-08 17:10 | disposition home or self-care (01) | DRG 947 ==
LOC: EC 15:21 → 5NMEDONC 18:57 → UNDOADMIN 18:57 → 5NMEDONC 18:57 → OBSVTOIN 08-08 14:25
PROVIDERS: ADMIT Internal Medicine; ATTEND Internal Medicine
DX: G89.3 Neoplasm related pain (acute) (chronic) (principal); E43 Unspecified severe protein-calorie malnutrition; C25.9 Malignant neoplasm of pancreas, unspecified; E87.1 Hypo-osmolality and hyponatremia; Z68.1 Body mass index [BMI] 19.9 or less, adult; D64.9 Anemia, unspecified; E11.9 Type 2 diabetes mellitus without complications; E78.5 Hyperlipidemia, unspecified; E87.5 Hyperkalemia; H91.93 Unspecified hearing loss, bilateral; I25.2 Old myocardial infarction; I49.3 Ventricular premature depolarization; G89.29 Other chronic pain; I71.4 Abdominal aortic aneurysm, without rupture; Z66 Do not resuscitate; Z11.59 Encounter for screening for other viral diseases; M19.90 Unspecified osteoarthritis, unspecified site; M47.812 Spondylosis without myelopathy or radiculopathy, cervical region; M47.816 Spondylosis without myelopathy or radiculopathy, lumbar region; H66.92 Otitis media, unspecified, left ear; Z79.01 Long term (current) use of anticoagulants; Z79.4 Long term (current) use of insulin; Z79.899 Other long term (current) drug therapy; Z92.21 Personal history of antineoplastic chemotherapy; Z92.3 Personal history of irradiation; Z90.411 Acquired partial absence of pancreas; Z87.891 Personal history of nicotine dependence; Z86.718 Personal history of other venous thrombosis and embolism; Z87.01 Personal history of pneumonia (recurrent); Z98.1 Arthrodesis status; Z80.0 Family history of malignant neoplasm of digestive organs; Z83.3 Family history of diabetes mellitus
CPT/HCPCS: 36415; 74018; 80048; 80053; 81003; 82150; 83036; 83690; 83735; 84100; 85025; 85027; 85610; 85730; 93005; 96361; 96374; 96375; 99285

== ENCOUNTER → 2019-08-28 | Outpatient (CLI) | payer MEDICARE, BC ==
--- NOTE | 2019-08-31 09:13 | PE ---
Nuclear medicine PET/CT HISTORY: Malignant neoplasm of the ampulla, subsequent Patient received 12.7 mCi F-18 FDG intravenously in delayed scanning was performed from skull base to the mid thighs. Localization and attenuation correction CT scan was performed. Correlation to CT abdomen pelvis 04/26/2019 Head and neck and chest: There is no cervical or supraclavicular adenopathy. No mediastinal, cervical , axillary, or hilar adenopathy. No evident lung mass. No pleural or pericardial effusion. There are coronary artery calcifications present. ABDOMEN: Pneumobilia is present. Patient shows cachectic appearance, lack of abdominal fat limits hugo luation. Metallic stent is present towards the head of the pancreas region. There is associated metab olic uptake at this level, SUV 9.2. Aortic aneurysm is again seen. Bowel activity felt likely to be p hysiologic. Retained fecal debris throughout the distribution of much of the colon suggests underlyin g fecal stasis. Dominant aortic aneurysm is again noted. Common iliac artery aneurysms also present. Osseous structures show no suspicious uptake. IMPRESSION: Cachexia again noted with suspicious hypermetabolic uptake present at the level of the pa tient's stent which is been placed in the interval.
== END | disposition home or self-care (01) ==
LOC: RADPETMAIN 14:13
PROVIDERS: ATTEND Internal Medicine Hematology & Oncology
DX: R64 Cachexia (principal); C24.1 Malignant neoplasm of ampulla of Vater
CPT/HCPCS: 78815; A9552

== ENCOUNTER 2019-09-09 10:10 | Inpatient (IN) | payer MEDICARE, BC ==
[2019-09-09] MEDS ORDERED: PANTOPRAZOLE 40 MG/10 ML VIAL IVP STA (10:18)
[2019-09-09] MEDS ORDERED: HYDROmorphone 1 MG/ML 1 ML SYRINGE IVP STA ×2 (10:18→13:29)
[2019-09-09] MEDS ORDERED: SODIUM CHLORIDE 0.9% 1,000 ML IV STA (10:18)
--- NOTE | 2019-09-09 10:21 | ED ---
General Adult HPI - General Stated complaint: Abd Pain Time Seen by Provider: 09/09/19 10:12 Source: patient, RN notes reviewed Mode of arrival: EMS Limitations: no limitations - History of Present Illness Initial comments: Patient is a pleasant 69-year-old male presenting to the emergency department complaints of abdominal discomfort. Patient has chronic abdominal discomfort with history of pancreatic cancer. Patient did have chemo and radiation to 3 years ago. Patient is scheduled to restart chemotherapy however they're waiting for him to get stronger. Abdominal discomfort is worse this morning, more in the right upper abdomen. No nausea vomiting. Patient does get constipation at times. No fevers. - Related Data Home Medications Medication Instructions Recorded Confirmed Atorvastatin [Lipitor] 80 mg PO HS 04/10/15 09/09/19 Diazepam [Valium] 10 mg PO DAILY PRN 04/10/15 09/09/19 Cholecalciferol [Vitamin D3 (25 2,000 unit PO DAILY 09/28/15 09/09/19 Mcg = 1000 Iu)] Insulin Glargine [Lantus] 20 unit SQ QAM 07/25/16 09/09/19 Lipase/Protease/Amylase [Creon Dr 1 cap PO AC-TID 07/25/16 09/09/19 6,000 Units Capsule] Pantoprazole Sodium [Protonix] 40 mg PO AC-BID 07/25/16 09/09/19 Apixaban [Eliquis] 2.5 mg PO BID 08/06/19 09/09/19 Insulin Aspart [NovoLOG Flexpen] 8 units SQ ACHS 08/06/19 09/09/19 Pramipexole [Mirapex] 0.25 mg PO BID 08/06/19 09/09/19 Terazosin HCl 5 mg PO HS 08/06/19 09/09/19 lisinopriL [Zestril] 2.5 mg PO DAILY 08/06/19 09/09/19 Insulin Aspart [NovoLOG Flexpen] See Protocol SQ ACHS 09/09/19 09/09/19 Morphine Sulfate Ir [MSIR] 15 mg PO Q4H 09/09/19 09/09/19 Sennosides [Senna] 17.2 mg PO BID 09/09/19 09/09/19 fentaNYL 75MCG/HR PATCH [Duragesic 1 patch TRANSDERM Q72H 09/09/19 09/09/19 75MCG/HR] Previous Rx's Medication Instructions Recorded Ondansetron Odt [Zofran Odt] 4 mg PO Q8HR PRN #30 tab 08/08/19 Allergies Allergy/AdvReac Type Severity Reaction Status Date / Time No Known Allergies Allergy Verified 09/09/19 10:54 Review of Systems ROS Statement: Those systems with pertinent positive or pertinent negative responses have been documented in the HPI. ROS Other: All systems not noted in ROS Statement are negative. Constitutional: Denies: fever Eyes: Denies: eye pain ENT: Denies: ear pain Respiratory: Denies: cough, dyspnea Cardiovascular: Denies: chest pain Endocrine: Reports: fatigue Gastrointestinal: Reports: abdominal pain, constipation. Denies: nausea, vomiting, diarrhea Genitourinary: Denies: dysuria Musculoskeletal: Denies: back pain Skin: Denies: rash Neurological: Denies: weakness Past Medical History Past Medical History: Cancer, Diabetes Mellitus, Deep Vein Thrombosis (DVT), Hearing Disorder / Deafness, Hyperlipidemia, Myocardial Infarction (CT), Musculoskeletal Disorder, Osteoarthritis (OA), Pneumonia Additional Past Medical History / Comment(s): PNEUMONIA 04/10/15, HAS ABDOMINAL AORTIC ANEURYSM- DR. JOHNSON, CONSTIPATION, ARTHRITIS IN NECK & LOWER BACK, CHRONIC LEFT EAR INFECTIONS. PANCREATIC CANCER, ON CHEMO LAST DONE ON 07/12/16. DVT RIGHT LEG JUNE 04. DVT AFTER FEEDING TUBE REMOVED MAR 2016. CURRENTLY HAS PORT A CATH NEAR RIGHT SHOULDER. SEPSIS AND CELLULITIS MAY 2016. HARD OF HEARING BILATERALLY. Last Myocardial Infarction Date:: 1988 History of Any Multi-Drug Resistant Organisms: None Reported Past Surgical History: Ear Surgery, Heart Catheterization Additional Past Surgical History / Comment(s): CERVICAL FUSION X 2, TUBE IN LEFT EAR JUNE 2015, HEART CATH WITH BALLOONING 1988. FEEDING TUBE AND PICC LINE - REMOVED MAR 2016. PORT A CATH BY RIGHT SHOULDER. WHIPPLE PROCEDURE MAR 07 2016, PANCREATIC CANCER. Past Anesthesia/Blood Transfusion Reactions: No Reported Reaction Past Psychological History: No Psychological Hx Reported Past Alcohol Use History: None Reported Past Drug Use History: None Reported - Past Family History Mother Family Medical History: Diabetes Mellitus Father Family Medical History: Cancer Additional Family Medical History / Comment(s): LIVER CA General Exam Limitations: no limitations General appearance: alert, in no apparent distress Head exam: Present: normocephalic Eye exam: Present: normal appearance Neck exam: Present: normal inspection Respiratory exam: Present: normal lung sounds bilaterally Cardiovascular Exam: Present: regular rate, normal rhythm Expanded Peripheral pulses: 2+: Posterior Tibialis (R), Posterior Tibialis (L) GI/Abdominal exam: Present: soft, tenderness (Moderate diffuse tenderness), normal bowel sounds. Absent: distended, guarding, rebound, rigid, pulsatile mass Extremities exam: Present: normal inspection Neurological exam: Present: alert Psychiatric exam: Present: normal affect, normal mood Skin exam: Present: normal color Course Vital Signs 09/09/19 09/09/19 09/09/19 10:12 11:38 12:20 Temperature 97.7 F Pulse Rate 57 L 55 L 57 L Respiratory 18 19 18 Rate Blood Pressure 175/106 166/107 O2 Sat by Pulse 99 98 97 Oximetry 09/09/19 09/09/19 13:15 13:33 Temperature Pulse Rate 55 L 60 Respiratory 18 18 Rate Blood Pressure 173/86 O2 Sat by Pulse 96 97 Oximetry EKG Findings - EKG Comments: EKG Findings:: Sinus rhythm at 71 with sinus arrhythmia. IL 144. QRS 84. QT 398. QTC 432. Left axis. Inferior Q waves. Left anterior fascicular block. No acute ST change. Anterior Q waves. Medical Decision Making - Medical Decision Making Patient reevaluated and still with abdominal discomfort. Patient and family updated. Patient does request discharge. Case was discussed in detail with Dr. Hastings, covering for hospital call, who will admit - Lab Data Result diagrams: 09/09/19 10:28 09/09/19 10:28 Lab Results 09/09/19 09/09/19 09/09/19 Range/Units 10:28 10:28 10:28 WBC 6.0 (3.8-10.6) k/uL RBC 4.20 L (4.30-5.90) m/uL Hgb 13.1 (13.0-17.5) gm/dL Hct 41.6 (39.0-53.0) % MCV 99.2 D (80.0-100.0) fL MCH 31.2 (25.0-35.0) pg MCHC 31.5 (31.0-37.0) g/dL RDW 14.0 (11.5-15.5) % Plt Count 261 (150-450) k/uL Neutrophils % 75 % Lymphocytes % 15 % Monocytes % 6 % Eosinophils % 1 % Basophils % 0 % Neutrophils # 4.4 (1.3-7.7) k/uL Lymphocytes # 0.9 L (1.0-4.8) k/uL Monocytes # 0.4 (0-1.0) k/uL Eosinophils # 0.1 (0-0.7) k/uL Basophils # 0.0 (0-0.2) k/uL PT 10.6 (9.0-12.0) sec INR 1.0 (<1.2) APTT 23.5 (22.0-30.0) sec Sodium 133 L (137-145) mmol/L Potassium 4.0 (3.5-5.1) mmol/L Chloride 102 (98-107) mmol/L Carbon Dioxide 26 (22-30) mmol/L Anion Gap 5 mmol/L BUN 8 L (9-20) mg/dL Creatinine 0.45 L (0.66-1.25) mg/dL Est GFR (CKD-EPI)AfAm >90 (>60 ml/min/1.73 sqM) Est GFR (CKD-EPI)NonAf >90 (>60 ml/min/1.73 sqM) Glucose 106 H (74-99) mg/dL Calcium 8.6 (8.4-10.2) mg/dL Total Bilirubin 0.8 (0.2-1.3) mg/dL AST 29 (17-59) U/L ALT 19 (4-49) U/L Alkaline Phosphatase 109 (38-126) U/L Total Protein 5.8 L (6.3-8.2) g/dL Albumin 3.2 L (3.5-5.0) g/dL Amylase 33 (30-110) U/L Lipase <10 L (23-300) U/L - Radiology Data Radiology results: report reviewed (Computed tomography scan shows postoperative changes, ileus, constipation) Disposition Clinical Impression: Pancreatic cancer, Intractable abdominal pain, Ileus, Constipation Disposition: ADMITTED IP TO THIS [facility] Is patient prescribed a controlled substance at d/c from ED?: No Referrals: Brando Chapman DO [Primary Care Provider] - 1-2 days
[2019-09-09 10:48] LABS: Basophils % (A) 0 %; Eosinophils # (A) 0.1 k/uL (0-0.7); Eosinophils % (A) 1 %; HCT 41.6 % (39.0-53.0); HGB 13.1 gm/dL (13.0-17.5); Lymphocytes # (A) 0.9 k/uL (1.0-4.8); Lymphocytes % (A) 15 %; MCH 31.2 pg (25.0-35.0); MCHC 31.5 g/dL (31.0-37.0); Mean Platelet Volume 7.9; Monocytes # (A) 0.4 k/uL (0-1.0); Monocytes % (A) 6 %; Neutrophils # (A) 4.4 k/uL (1.3-7.7); Neutrophils % (A) 75 %; Platelet Count 261 k/uL (150-450)
[2019-09-09 10:50] LABS: ALT 19 U/L (4-49); AST 29 U/L (17-59); African American GFR (CKD) >90 (>60 ml/min/1.73 sqM); Albumin 3.2 g/dL (3.5-5.0); Alkaline Phosphatase 109 U/L (38-126); Amylase 33 U/L (30-110); Anion Gap 5 mmol/L; Blood Urea Nitrogen 8 mg/dL (9-20); Calcium 8.6 mg/dL (8.4-10.2); Carbon Dioxide 26 mmol/L (22-30); Chloride 102 mmol/L (98-107); Glucose 106 mg/dL (74-99); Non-African American GFR(CKD) >90 (>60 ml/min/1.73 sqM); Sodium 133 mmol/L (137-145); Total Bilirubin 0.8 mg/dL (0.2-1.3); Total Protein 5.8 g/dL (6.3-8.2)
[2019-09-09 10:54] LABS: Partial Thromboplastin Time 23.5 sec (22.0-30.0); Prothrombin Time 10.6 sec (9.0-12.0)
[2019-09-09 10:55] LABS: MCV 99.2 fL (80.0-100.0)
--- NOTE | 2019-09-09 11:31 | CT ---
EXAMINATION TYPE: CT abdomen pelvis wo con DATE OF EXAM: 09/09/2019 COMPARISON: Head CT 08/28/2019, 04/26/2019 HISTORY: Pain CT DLP: 373.3 mGycm Automated exposure control for dose reduction was used. TECHNIQUE: Helical acquisition of images was performed from the lung bases through the pelvis. FINDINGS: LUNG BASES: There is a small amount of pleural fluid and pericardial fluid. Subsegmental changes at t he lung bases most typical of atelectasis correlate for COPD. Coronary artery calcification suggested . ABDOMEN: Pneumobilia is present. Patient shows cachectic appearance, lack of abdominal fat limits hugo luation. Postsurgical change suspected in the peripancreatic region similar to the prior exam. Assess ment of the pancreas is limited due to lack of contrast and lack of intraperitoneal fat. Could not ex clude a mass. Spleen not visualized. Mild central intrahepatic biliary dilation. Calcifications are seen in the renal hilum likely vascular. There are punctate cortical bilateral tiffany al calculi. There is a 1 cm low-density lesion involving the lower pole of the right kidney. Bowel gas pattern nonspecific Retained fecal debris throughout the distribution of much of the colon suggests underlying fecal stasis. Suggestion of previous surgical change involving the bowel anterior ly There is a 4.5 cm abdominal aortic aneurysm stable from recent CT aortic aneurysm is again noted. Com mon iliac artery aneurysms also present. Extensive atherosclerotic changes of the visualized vasculat ure. Hypertrophic and degenerative change of the vertebral column. Chronic deformity of the sacrum on the right. Small amount of free fluid in the right lower quadrant. The left anterior subcutaneous tissues there likely is a small 2 cm lipoma. IMPRESSION: 1. Limited exam. There are few prominent small bowel loops which could been the basis of an ileus or enteritis correlate clinically. 2. Pneumobilia and increased soft tissue in the region of the peripancreatic head which is markedly l imited due to lack of IV contrast and lack of peritoneal fat. There appears be postsurgical change in this level. 3. 4.5 cm abdominal aortic aneurysm with extension into the iliac arteries similar to the recent PET scan #4 there is a small amount of fluid in the right lower quadrant. Appendix is normal. Extensive r etained fecal debris throughout the colon correlate for constipation
[2019-09-09] MEDS ORDERED: HYDROmorphone 1 MG/ML 1 ML SYRINGE IVP PRN (13:05)
[2019-09-09] MEDS ORDERED: NALOXONE 0.4 MG/ML 1 ML VIAL IV PRN (13:05)
[2019-09-09] MEDS ORDERED: SODIUM CHLORIDE 0.9% 1,000 ML IV SCH (13:15)
[2019-09-09] MEDS ORDERED: diazePAM 5 MG TAB PO PRN (15:36)
[2019-09-09] MEDS ORDERED: LACTULOSE 20 GM/30 ML CUP PO ONE (15:37)
[2019-09-09] MEDS ORDERED: ONDANSETRON 4 MG/2 ML VIAL IVP PRN (15:37)
--- NOTE | 2019-09-09 15:43 | P.HPIM ---
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 Patient described his pain as sharp mostly in the epigastric area but all over his abdomen. He rated the pain as 8 out of 10. He denies any nausea or vomiting. He is having small bowel movements as he take multiple stool softeners at home and is maintained on high doses of opiate for pain control. Patient was evaluated in the ER and admitted to the hospital for further management of his medical problems noted below. Review of Systems Review of system: 14 points review of systems were obtained and were negative except to what were mentioned in the HPI. Past Medical History Past Medical History: Coronary Artery Disease (CAD), Cancer, Diabetes Mellitus, Deep Vein Thrombosis (DVT), GERD/Reflux, Hearing Disorder / Deafness, Hyperlipidemia, Hypertension, Myocardial Infarction (PA), Musculoskeletal Disorder, Osteoarthritis (OA), Pneumonia Additional Past Medical History / Comment(s): Pt recently admitted to [facility] 08/08/19 with intractable abdominal pain 2ndary to malignancy with hx of pancre atic cancer with new mass near celiac plexus/anemia/severe protein calorie malnutrition. Other hx: 2017 Pancreatic cancer with whipple procedure/chemo/radiation, chronic abdominal pain, constipation, DVT R arm and R leg, AAA-being monitored, [place] bilaterally-chronic L ear infection, arthritis cer vical and low back, benign colon polyps-currently has 2 large polyps that are in a difficult location-was to go to [facility] for removal but health has not allowed this to happen Last Myocardial Infarction Date:: 1988 History of Any Multi-Drug Resistant Organisms: None Reported Past Surgical History: Ear Surgery, Heart Catheterization, Orthopedic Surgery Additional Past Surgical History / Comment(s): 2017 Whipple procedure, peg tube since removed, R chest port since removed, PTCA-2 vessels in 1988, cervical fusion x2, L ear myringotomies/tubes, colonoscopy/benign polypectomies. Past Anesthesia/Blood Transfusion Reactions: No Reported Reaction Smoking Status: Former smoker - Past Family History Mother Family Medical History: Diabetes Mellitus Father Family Medical History: Cancer Additional Family Medical History / Comment(s): LIVER CA Medications and Allergies Home Medications Medication Instructions Recorded Confirmed Type Atorvastatin [Lipitor] 80 mg PO HS 04/10/15 09/09/19 History Diazepam [Valium] 10 mg PO DAILY PRN 04/10/15 09/09/19 History Cholecalciferol [Vitamin D3 (25 2,000 unit PO DAILY 09/28/15 09/09/19 History Mcg = 1000 Iu)] Insulin Glargine [Lantus] 20 unit SQ QAM 07/25/16 09/09/19 History Lipase/Protease/Amylase [Creon Dr 1 cap PO AC-TID 07/25/16 09/09/19 History 6,000 Units Capsule] Pantoprazole Sodium [Protonix] 40 mg PO AC-BID 07/25/16 09/09/19 History Apixaban [Eliquis] 2.5 mg PO BID 08/06/19 09/09/19 History Insulin Aspart [NovoLOG Flexpen] 8 units SQ ACHS 08/06/19 09/09/19 History Pramipexole [Mirapex] 0.25 mg PO BID 08/06/19 09/09/19 History Terazosin HCl 5 mg PO HS 08/06/19 09/09/19 History lisinopriL [Zestril] 2.5 mg PO DAILY 08/06/19 09/09/19 History Ondansetron Odt [Zofran Odt] 4 mg PO Q8HR PRN #30 tab 08/08/19 09/09/19 Rx Insulin Aspart [NovoLOG Flexpen] See Protocol SQ ACHS 09/09/19 09/09/19 History Morphine Sulfate Ir [MSIR] 15 mg PO Q4H 09/09/19 09/09/19 History Sennosides [Senna] 17.2 mg PO BID 09/09/19 09/09/19 History fentaNYL 75MCG/HR PATCH [Duragesic 1 patch TRANSDERM Q72H 09/09/19 09/09/19 History 75MCG/HR] Allergies Allergy/AdvReac Type Severity Reaction Status Date / Time No Known Allergies Allergy Verified 09/09/19 10:54 Physical Exam Vitals: Vital Signs Temp Pulse Resp BP Pulse Ox 09/09/19 13:33 60 18 173/86 97 07/30/20 13:15 55 L 18 96 09/09/19 12:20 57 L 18 166/107 97 09/09/19 11:38 55 L 19 175/106 98 09/09/19 10:12 97.7 F 57 L 18 99 Intake and Output 09/09/19 09/09/19 09/09/19 06:59 14:59 22:59 Other: Weight 57.606 kg General: The patient is awake and alert, in no distress Eye: there is normal conjunctiva bilaterally. Neck: The neck is supple, there is no JVD. Cardiovascular: Normal S1-S2, no S3-S4, no murmurs. Respiratory: Lungs clear to auscultation bilaterally Gastrointestinal: Abdomen is soft, nontender Musculoskeletal: There is no pedal edema. Neurological:. Speech is normal. Skin: Skin is warm and dry Results CBC & Chem 7: 09/09/19 10:28 09/09/19 10:28 Labs: Abnormal Lab Results - Last 24 Hours (Table) 09/09/19 09/09/19 Range/Units 10:28 10:28 RBC 4.20 L (4.30-5.90) m/uL Lymphocytes # 0.9 L (1.0-4.8) k/uL Sodium 133 L (137-145) mmol/L BUN 8 L (9-20) mg/dL Creatinine 0.45 L (0.66-1.25) mg/dL Glucose 106 H (74-99) mg/dL Total Protein 5.8 L (6.3-8.2) g/dL Albumin 3.2 L (3.5-5.0) g/dL Lipase <10 L (23-300) U/L Thrombosis Risk Factor Assmnt - Choose All That Apply Any of the Below Risk Factors Present?: Yes Other Risk Factors: Yes Each Risk Factor Represents 2 Points: Age 61-74 years, Malignancy Other congenital or acquired thrombophilia - If yes, enter type in comment: No Thrombosis Risk Factor Assessment Total Risk Factor Score: 4 Thrombosis Risk Factor Assessment Level: Moderate Risk Assessment and Plan Assessment: 1. Abdominal pain: Multifactorial secondary to underlying tumor and constipation. Computed tomography scan of the abdomen showed early ileus and extensive fecal debris throughout the colon. We will continue IV fluid hydration. One-time dose of lactulose. Continue home regimen of stool softeners. Add MiraLAX daily. Liquid diet for now. 2. 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 Oncology consulted 3. History of right upper extremity DVT on anticoagulation 4. Type 2 diabetes: Continue sliding scale insulin and home dose of Lantus 5. Hyperlipidemia on Lipitor
[2019-09-09 15:52] LABS: Amorphous Sediment,Urine Rare /hpf; Appearance,Urine Cloudy (Clear); Bacteria,Urine Rare /hpf; Bilirubin,Urine Negative (Negative); Blood,Urine Negative (Negative); Color,Urine Yellow; Glucose,Urine (UA) Negative (Negative); Hyaline Casts,Urine 7 /lpf (0-2); Ketones,Urine Negative (Negative); Leukocyte Esterase,Urine Negative (Negative); Mucus,Urine Rare /hpf; Nitrite,Urine Negative (Negative); PH, Urine 7.5 (5.0-8.0); Protein,Urine Negative (Negative); RBC,Urine 1 /hpf (0-5); Specific Gravity,Urine 1.008 (1.001-1.035); Urobilinogen,Urine <2.0 mg/dL (<2.0); WBC,Urine 1 /hpf (0-5)
[2019-09-09 16:58] LABS: Glucose,Whole Blood 48 mg/dL (75-99)
[2019-09-09] MEDS: INSULIN ASPART (NovoLOG) 100 UNIT/ML VIAL SQ SCH ×2 (17:04→21:09)
[2019-09-09] MEDS: MORPHINE SULFATE IR 15 MG TABLET PO SCH ×2 (17:16→20:05)
[2019-09-09] MEDS: PANTOPRAZOLE 40 MG TABLET PO SCH (17:17)
[2019-09-09] MEDS: LIPASE 5,000/PROTEASE 17,000/AMYLASE 24,000 PO SCH (17:17)
[2019-09-09] MEDS: SODIUM CHLORIDE 0.9% 1,000 ML IV SCH ×2 (17:17→21:18)
[2019-09-09 17:20] LABS: Glucose,Whole Blood 70 mg/dL (75-99)
[2019-09-09] MEDS: polyethylene glycoL 3350 17 GM POWD.PACK PO SCH (20:04)
[2019-09-09] MEDS: ATORVASTATIN 80 MG TAB PO SCH (20:04)
[2019-09-09] MEDS: PRAMIPEXOLE 0.25 MG TAB PO SCH (20:05)
[2019-09-09] MEDS: SENNOSIDES 8.6 MG TAB PO SCH (20:05)
[2019-09-09] MEDS: APIXABAN 2.5 MG TABLET PO SCH (20:05)
[2019-09-09] MEDS: DOXAZOSIN 4 MG TAB PO SCH (20:05)
[2019-09-09 21:06] LABS: Glucose,Whole Blood 109 mg/dL (75-99)
--- NOTE | 2019-09-10 00:21 | P.CONS ---
History of Present Illness - Reason for Consult Consult date: 09/09/19 intractable cancer related pain, pancreas cancer - History of Present Illness The patient is a 69-year-old white male with an extensive past oncologic history. he was recently seen in consult and patient on 08/07/19. He was diagnosed with localized pancreatic cancer in 2017 and was treated with Whipple's procedure at [facility], followed by adjuvant chemotherapy with gemcitabine and then adjuvant chemoradiation with oral Xeloda as a chemo arm. The patient remained in remission until the spring of this year. He then developed problems with abdominal pain and was admitted to [facility] in early 06/29. At that time he was found to have ischemic bowel and underwent surgery for the same. 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 The patient had a somewhat prolonged course and actually went to the [facility] where this mass was biopsied. Reportedly the biopsy was positive for recurrent pancreatic malignancy, according to the patient, but the formal path report when obtained in the office was nondiagnostic. The patient wanted to have further treatment here, closer to home and was supposed to be seen in the office . However the patient has been having diffuse abdominal pain since surgery, with progressive increase. He had been on fentanyl 25 g at home but this was not controlling his pain. He therefore came into the emergency room, and was admitted, and subsequently seen for his initial consult. the patient was able to be discharged with adjustment of pain medications. He followed up with Dr. Warren in the outpatient setting. Fentanyl patch was increased at that time did he was also referred to Dr. Centeno at [facility] The patient states that he did have his appointment with Dr. Centeno and fentanyl was further increased to 75 g. He had been placed on Percocet by Dr. Warren and this was changed to morphine by Dr. Centeno. At this time he was told that he needed to "build up his strength" prior to starting on any systemic ther apy. the patient's platelet over the past week or so his pain started to get worse again despite taking the above-mentioned pain regimen. He had associated decrease in appetite, and some occasional nausea. He therefore came in to the hospital and was admitted for further management. Review of Systems Constitutional: Reports chronic pain, Reports poor appetite, Reports weight loss Eyes: denies blurred vision, denies pain Ears: deny: decreased hearing, ear discharge, earache, tinnitus Ears, nose, mouth and throat: Denies headache, Denies sore throat Cardiovascular: Reports decreased exercise tolerance Respiratory: Denies cough Gastrointestinal: Reports abdominal pain, Reports nausea Genitourinary: Reports as per HPI Musculoskeletal: Reports muscle weakness Integumentary: Denies pruritus, Denies rash Neurological: Reports weakness, Denies numbness Psychiatric: Denies anxiety, Denies depression Endocrine: Reports fatigue, Reports weight change Hematologic/Lymphatic: Reports as per HPI Past Medical History Past Medical History: Coronary Artery Disease (CAD), Cancer, Diabetes Mellitus, Deep Vein Thrombosis (DVT), GERD/Reflux, Hearing Disorder / Deafness, Hyperlipidemia, Hypertension, Myocardial Infarction ([place]), Musculoskeletal Disorder, Osteoarthritis (OA), Pneumonia Additional Past Medical History / Comment(s): Pt recently admitted to [facility] 08/08/19 with intractable abdominal pain 2ndary to malignancy with hx of pancreatic cancer with new mass near celiac plexus/anemia/severe protein calorie malnutrition. Other hx: 2017 Pancreatic cancer with whipple procedure/chemo/radiation, chronic abdominal pain, constipation, DVT R arm and R leg, AAA-being monitored, [place] bilaterally-chronic L ear infection, arthritis cervical and low back, benign colon polyps-currently has 2 large polyps that are in a difficult location-was to go to [facility] for removal but health has not allowed this to happen Last Myocardial Infarction Date:: 1988 History of Any Multi-Drug Resistant Organisms: None Reported Past Surgical History: Ear Surgery, Heart Catheterization, Orthopedic Surgery Additional Past Surgical History / Comment(s): 2017 Whipple procedure, peg tube since removed, R chest port since removed, PTCA-2 vessels in 1988, cervical fusion x2, L ear myringotomies/tubes, colonoscopy/benign polypectomies. Past Anesthesia/Blood Transfusion Reactions: No Reported Reaction Smoking Status: Former smoker - Past Family History Mother Family Medical History: Diabetes Mellitus Father Family Medical History: Cancer Additional Family Medical History / Comment(s): LIVER CA Medications and Allergies Home Medications Medication Instructions Recorded Confirmed Type Atorvastatin [Lipitor] 80 mg PO HS 04/10/15 09/09/19 History Diazepam [Valium] 10 mg PO DAILY PRN 04/10/15 09/09/19 History Cholecalciferol [Vitamin D3 (25 2,000 unit PO DAILY 09/28/15 09/09/19 History Mcg = 1000 Iu)] Insulin Glargine [Lantus] 20 unit SQ QAM 07/25/16 09/09/19 History Lipase/Protease/Amylase [Jose J Portillo 1 cap PO AC-TID 07/25/16 09/09/19 History 6,000 Units Capsule] Pantoprazole Sodium [Protonix] 40 mg PO AC-BID 07/25/16 09/09/19 History Apixaban [Eliquis] 2.5 mg PO BID 08/06/19 09/09/19 History Insulin Aspart [NovoLOG Flexpen] 8 units SQ ACHS 08/06/19 09/09/19 History Pramipexole [Mirapex] 0.25 mg PO BID 08/06/19 09/09/19 History Terazosin HCl 5 mg PO HS 08/06/19 09/09/19 History lisinopriL [Zestril] 2.5 mg PO DAILY 08/06/19 09/09/19 History Ondansetron Odt [Zofran Odt] 4 mg PO Q8HR PRN #30 tab 08/08/19 09/09/19 Rx Insulin Aspart [NovoLOG Flexpen] See Protocol SQ ACHS 09/09/19 09/09/19 History Morphine Sulfate Ir [MSIR] 15 mg PO Q4H 09/09/19 09/09/19 History Sennosides [Senna] 17.2 mg PO BID 09/09/19 09/09/19 History fentaNYL 75MCG/HR PATCH [Duragesic 1 patch TRANSDERM Q72H 09/09/19 09/09/19 History 75MCG/HR] Allergies Allergy/AdvReac Type Severity Reaction Status Date / Time No Known Allergies Allergy Verified 09/09/19 10:54 Physical Exam Vitals: Vital Signs Temp Pulse Resp BP Pulse Ox 09/09/19 13:33 60 18 173/86 97 09/09/19 13:15 55 L 18 96 09/09/19 12:20 57 L 18 166/107 97 09/09/19 11:38 55 L 19 175/106 98 09/09/19 10:12 97.7 F 57 L 18 99 Intake and Output 09/09/19 09/09/19 09/09/19 06:59 14:59 22:59 Other: Voiding Method Toilet Weight 57.606 kg - Constitutional General appearance: mild distress - EENT Eyes: EOMI, PERRLA ENT: hearing grossly normal, normal oropharynx - Neck Neck: no lymphadenopathy Thyroid: bilateral: normal size - Respiratory Respiratory: bilateral: CTA - Cardiovascular Rhythm: regular Heart sounds: normal: S1, S2 - Gastrointestinal General gastrointestinal: normal bowel sounds, soft Localized gastrointestinal: tender: epigastric periumbilical - Integumentary Integumentary: normal - Neurologic Neurologic: CNII-XII intact - Musculoskeletal Musculoskeletal: generalized weakness, strength equal bilaterally - Psychiatric Psychiatric: A&O x's 3, appropriate affect Results CBC & Chem 7: 09/09/19 10:28 09/09/19 10:28 Labs: Abnormal Lab Results - Last 24 Hours (Table) 09/09/19 09/09/19 09/09/19 Range/Units 10:28 10:28 14:55 RBC 4.20 L (4.30-5.90) m/uL Lymphocytes # 0.9 L (1.0-4.8) k/uL Sodium 133 L (137-145) mmol/L BUN 8 L (9-20) mg/dL Creatinine 0.45 L (0.66-1.25) mg/dL Glucose 106 H (74-99) mg/dL POC Glucose (mg/dL) (75-99) mg/dL Total Protein 5.8 L (6.3-8.2) g/dL Albumin 3.2 L (3.5-5.0) g/dL Lipase <10 L (23-300) U/L Amorphous Sediment Rare H (None) /hpf Urine Bacteria Rare H (None) /hpf Hyaline Casts 7 H (0-2) /lpf Urine Mucus Rare H (None) /hpf 09/09/19 09/09/19 Range/Units 16:56 17:12 RBC (4.30-5.90) m/uL Lymphocytes # (1.0-4.8) k/uL Sodium (137-145) mmol/L BUN (9-20) mg/dL Creatinine (0.66-1.25) mg/dL Glucose (74-99) mg/dL POC Glucose (mg/dL) 48 L 70 L (75-99) mg/dL Total Protein (6.3-8.2) g/dL Albumin (3.5-5.0) g/dL Lipase (23-300) U/L Amorphous Sediment (None) /hpf Urine Bacteria (None) /hpf Hyaline Casts (0-2) /lpf Urine Mucus (None) /hpf Comments: PET scan report reviewed CT scan - abdomen: report reviewed CT scan - pelvis: report reviewed Assessment and Plan (1) Intractable abdominal pain Narrative/Plan: The patient has been having progressive intractable abdominal pain. Most likely this appears to be due to tumor recurrence impinging on the celiac plexus. He has been requiring increasing doses of opioids with recent increase of fentanyl to 75 g, and changed from Percocet to morphine IR. He did have a transient response, but has had decreasing pain control again over the past 1-2 weeks. - Continue fentanyl 75 g - Patient has been placed on Dilaudid when necessary - The patient is likely to need increasing doses of opioids with opioid treatment alone. Pain management service and the consulted for celiac plexus block. In addition once patient is able to start treatment for malignancy, that could hopefully also help his pain control assuming he responds Current Visit: Yes Status: Acute Code(s): R10.9 - UNSPECIFIED ABDOMINAL PAIN SNOMED Code(s): 13002079 (2) Pancreatic cancer Narrative/Plan: Diagnostic and therapeutic circumstances so far as described in the HPI. The patient is suspected to have recurrence and approximation to the celiac plexus. He had a needle biopsy which was however nondiagnostic. PET scan was discussed with him. It does show uptake at the side of the pancreatic head (essentially the same location as the known recurrent mass) with no other sites of metastasis. The patient is not a candidate for additional radiation therapy. He has alrachelle tysondy been seen by radiation oncology. At this time the plan appears to be systemic therapy. Patient states that he was advised that he needs to get stronger. We will confirm plan with primary oncologist. Current Visit: Yes Status: Acute Code(s): C25.9 - MALIGNANT NEOPLASM OF PANCREAS, UNSPECIFIED SNOMED Code(s): 855625665
[2019-09-10] MEDS: MORPHINE SULFATE IR 15 MG TABLET PO SCH ×7 (00:32→23:41)
[2019-09-10 04:15] LABS: Glucose,Whole Blood 55 mg/dL (75-99)
[2019-09-10 04:20] LABS: Glucose,Whole Blood 56 mg/dL (75-99)
[2019-09-10 04:29] LABS: Glucose,Whole Blood 131 mg/dL (75-99)
[2019-09-10 05:08] VITALS: RESP 18
[2019-09-10] MEDS ORDERED: INSULIN DETEMIR (LEVEMIR) 100 UNIT/ML SYR SQ SCH (07:00)
[2019-09-10] MEDS: INSULIN ASPART (NovoLOG) 100 UNIT/ML VIAL SQ SCH ×4 (07:40→20:21)
[2019-09-10 07:55] LABS: Glucose,Whole Blood 53 mg/dL (75-99)
[2019-09-10 08:15] LABS: Glucose,Whole Blood 81 mg/dL (75-99)
[2019-09-10] MEDS: DEXTROSE 5%-0.45% NACL 1,000 ML IV SCH ×2 (08:26→20:00)
[2019-09-10] MEDS: PANTOPRAZOLE 40 MG TABLET PO SCH ×2 (08:26→17:37)
[2019-09-10] MEDS: SENNOSIDES 8.6 MG TAB PO SCH ×2 (08:27→19:59)
[2019-09-10] MEDS: PRAMIPEXOLE 0.25 MG TAB PO SCH ×2 (08:30→20:00)
[2019-09-10] MEDS: LIPASE 5,000/PROTEASE 17,000/AMYLASE 24,000 PO SCH ×3 (08:30→17:37)
[2019-09-10] MEDS ORDERED: PANTOPRAZOLE 40 MG/10 ML VIAL IV SCH (09:00)
[2019-09-10 09:43] LABS: ALT 16 U/L (4-49); AST 29 U/L (17-59); African American GFR (CKD) >90 (>60 ml/min/1.73 sqM); Alkaline Phosphatase 84 U/L (38-126); Anion Gap 7 mmol/L; Blood Urea Nitrogen 6 mg/dL (9-20); Calcium 8.4 mg/dL (8.4-10.2); Carbon Dioxide 27 mmol/L (22-30); Chloride 99 mmol/L (98-107); Glucose 86 mg/dL (74-99); Non-African American GFR(CKD) >90 (>60 ml/min/1.73 sqM); Potassium 3.8 mmol/L (3.5-5.1); Sodium 133 mmol/L (137-145); Total Bilirubin 1.1 mg/dL (0.2-1.3); Total Protein 5.3 g/dL (6.3-8.2)
[2019-09-10] MEDS ORDERED: LACTULOSE 20 GM/30 ML CUP PO ONE (09:58)
[2019-09-10 10:32] VITALS: BMI 19.8
[2019-09-10] MEDS: APIXABAN 2.5 MG TABLET PO SCH ×2 (10:35→19:59)
[2019-09-10 11:55] LABS: Glucose,Whole Blood 163 mg/dL (75-99)
--- NOTE | 2019-09-10 14:34 | P.PAINCN ---
History of Present Illness - Reason for Consult Consult date: 09/10/19 Consideration of celiac plexus block - Chief Complaint Abdominal pain - History of Present Illness 69 year old male with a complicated and extensive past oncologic surgery. Was diagnosed with pancreactic cancer in 2016 and treated with Whipples procedure at [place] followed by chemotherapy and radiation. He remained in remission until spring of this year when he developed abdominal pain and was admitted to [place] in June of 2019. He was found to have ischemic bowel and underwent surgery and was found to have a mass close to the celiac plexus. He was biopsied at [facility] where it was positive for recurrent pancreatic malignancy. Patient preferred to have treatment here which is closer to home. In regards to pain medication, he had been on a fentanyl patch at 25 ug at home which was not working. It was recently increased to [address] Warren. He was also placed on percocet 7.5 mg TID-QID which was then changed to morphine 15mg 6x/day. Currently as an inpatient, he is on his fentanyl patch at 75 mcg/hr, dilaudid 1 mg Q3H, and morphine 15 mg Q4H. His pain is located in the mid abdomen described as sharp and stabbing with occasional radiation to the flanks. Pain has been present since the spring of this year and has been getting worse, although he feels with the current medication regimen his pain has been adequately controlled. Overall he says that any form of movement makes the pain worse and generally resting makes the pain better. The patient was somewhat sleepy as I had just woken him up from a nap and says he feels generally well. Review of Systems Constitutional: Reports as per HPI Gastrointestinal: Reports abdominal pain, Reports bloating, Reports nausea Past Medical History Past Medical History: Coronary Artery Disease (CAD), Cancer, Diabetes Mellitus, Deep Vein Thrombosis (DVT), GERD/Reflux, Hearing Disorder / Deafness, Hyperlipidemia, Hypertension, Myocardial Infarction ([place]), Musculoskeletal Disorder, Osteoarthritis (OA), Pneumonia Additional Past Medical History / Comment(s): Pt recently admitted to [facility] 08/08/19 with intractable abdominal pain 2ndary to malignancy with hx of pancreatic cancer with new mass near celiac plexus/anemia/severe protein calorie malnutrition. Other hx: 2017 Pancreatic cancer with whipple procedure/chemo/radiation, chronic abdominal pain, constipation, DVT R arm and R leg, AAA-being monitored, [place] bilaterally-chronic L ear infection, arthritis cervical and low back, benign colon polyps-currently has 2 large polyps that are in a difficult location-was to go to [facility] for removal but health has not allowed this to happen Last Myocardial Infarction Date:: 1988 History of Any Multi-Drug Resistant Organisms: None Reported Past Surgical History: Ear Surgery, Heart Catheterization, Orthopedic Surgery Additional Past Surgical History / Comment(s): 2017 Whipple procedure, peg tube since removed, R chest port since removed, PTCA-2 vessels in 1988, cervical fusion x2, L ear myringotomies/tubes, colonoscopy/benign polypectomies. Past Anesthesia/Blood Transfusion Reactions: No Reported Reaction Smoking Status: Former smoker - Past Family History Mother Family Medical History: Diabetes Mellitus Father Family Medical History: Cancer Additional Family Medical History / Comment(s): LIVER CA Medications and Allergies Home Medications Medication Instructions Recorded Confirmed Type Atorvastatin [Lipitor] 80 mg PO HS 04/10/15 09/09/19 History Diazepam [Valium] 10 mg PO DAILY PRN 04/10/15 09/09/19 History Cholecalciferol [Vitamin D3 (25 2,000 unit PO DAILY 09/28/15 09/09/19 History Mcg = 1000 Iu)] Insulin Glargine [Lantus] 20 unit SQ QAM 07/25/16 09/09/19 History Lipase/Protease/Amylase [Creon Dr 1 cap PO AC-TID 07/25/16 09/09/19 History 6,000 Units Capsule] Pantoprazole Sodium [Protonix] 40 mg PO AC-BID 07/25/16 09/09/19 History Apixaban [Eliquis] 2.5 mg PO BID 08/06/19 09/09/19 History Insulin Aspart [NovoLOG Flexpen] 8 units SQ ACHS 08/06/19 09/09/19 History Pramipexole [Mirapex] 0.25 mg PO BID 08/06/19 09/09/19 History Terazosin HCl 5 mg PO HS 08/06/19 09/09/19 History lisinopriL [Zestril] 2.5 mg PO DAILY 08/06/19 09/09/19 History Ondansetron Odt [Zofran Odt] 4 mg PO Q8HR PRN #30 tab 08/08/19 09/09/19 Rx Insulin Aspart [NovoLOG Flexpen] See Protocol SQ ACHS 09/09/19 09/09/19 History Morphine Sulfate Ir [MSIR] 15 mg PO Q4H 09/09/19 09/09/19 History Sennosides [Senna] 17.2 mg PO BID 09/09/19 09/09/19 History fentaNYL 75MCG/HR PATCH [Duragesic 1 patch TRANSDERM Q72H 09/09/19 09/09/19 History 75MCG/HR] Allergies Allergy/AdvReac Type Severity Reaction Status Date / Time No Known Allergies Allergy Verified 09/09/19 10:54 Physical Exam Vitals: Vital Signs Temp Pulse Pulse Resp BP BP Pulse Ox 09/10/19 05:00 97.5 F L 73 18 106/72 96 09/09/19 19:15 98.4 F 57 L 16 160/87 99 09/09/19 13:33 60 18 173/86 97 09/09/19 13:15 55 L 18 96 09/09/19 12:20 57 L 18 166/107 97 09/09/19 11:38 55 L 19 175/106 98 Intake and Output 09/09/19 09/10/19 09/10/19 22:59 06:59 14:59 Intake Total 290 725 Balance 290 725 Intake: Intake, IV Titration 725 Amount Sodium Chloride 0.9% 1, 725 000 ml @ 75 mls/hr IV . [id number] [facility] Rx#:[id number] Oral 290 Other: Voiding Method Toilet Toilet Toilet # Voids 1 1 Weight 57.606 kg - Constitutional General appearance: average body habitus, cooperative, no acute distress - Respiratory Respiratory: bilateral: CTA - Cardiovascular Rhythm: regular Heart sounds: normal: S1, S2 - Gastrointestinal Localized gastrointestinal: tender: diffuse - Psychiatric Psychiatric: A&O x's 3 Results CBC & Chem 7: 09/09/19 10:28 09/10/19 08:37 Labs: Abnormal Lab Results - Last 24 Hours (Table) 09/09/19 09/09/19 09/09/19 Range/Units 14:55 16:56 17:12 Sodium (137-145) mmol/L BUN (9-20) mg/dL Creatinine (0.66-1.25) mg/dL POC Glucose (mg/dL) 48 L 70 L (75-99) mg/dL Total Protein (6.3-8.2) g/dL Albumin (3.5-5.0) g/dL Amorphous Sediment Rare H (None) /hpf Urine Bacteria Rare H (None) /hpf Hyaline Casts 7 H (0-2) /lpf Urine Mucus Rare H (None) /hpf 09/09/19 09/10/19 09/10/19 Range/Units 21:04 04:13 04:19 Sodium (137-145) mmol/L BUN (9-20) mg/dL Creatinine (0.66-1.25) mg/dL POC Glucose (mg/dL) 109 H 55 L 56 L (75-99) mg/dL Total Protein (6.3-8.2) g/dL Albumin (3.5-5.0) g/dL Amorphous Sediment (None) /hpf Urine Bacteria (None) /hpf Hyaline Casts (0-2) /lpf Urine Mucus (None) /hpf 09/10/19 09/10/19 09/10/19 Range/Units 04:28 07:52 08:37 Sodium 133 L (137-145) mmol/L BUN 6 L (9-20) mg/dL Creatinine 0.44 L (0.66-1.25) mg/dL POC Glucose (mg/dL) 131 H 53 L (75-99) mg/dL Total Protein 5.3 L (6.3-8.2) g/dL Albumin 3.0 L (3.5-5.0) g/dL Amorphous Sediment (None) /hpf Urine Bacteria (None) /hpf Hyaline Casts (0-2) /lpf Urine Mucus (None) /hpf CT scan - abdomen: report reviewed Assessment and Plan Assessment: 69 year old male with an extensive pancreatic cancer history with past treatment with chemo/radiation which led to remission; however patient has had 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 Patient currently being managed medically with fentanyl patch 75 mcg/hr, dilaudid 1 mg Q3H, morphine 15 mg Q4H and is currently feeling comfortable with this regimen. Pain service was consulted for celiac plexus block. Plan: Had a discussion with the patient regarding plan of care and possibility of celiac plexus block. At this time the patient feels comfortable with his medication regimen and would like to defer any type of intervention ie celiac plexus block until he is seen as an outpatient. Given that he is on Eliquis as well, his prescribing physician would have to be ok with him holding the medication for 3 days and would be able to start the medication 24 hours after the procedure. He will be referred to Dr. Barnes for to discuss the procedure further. PQRS Measure Charge Sheet PQRS Narrative: Smoking Status Former smoker Do You Want the Pneumonia Vaccine Up to Date Vaccine AT THIS TIME? Blood Pressure [Left Arm] 106/72 Blood Pressure 173/86 Pain Intensity [Right Abdomen] 0 Pain Intensity [Upper Abdomen] 8 Pain Intensity 2 Pain Scale Used Numeric (1 - 10) Scale Used Non Verbal Pain Indicator Home Medications: Ambulatory Orders Atorvastatin [Lipitor] 80 mg PO HS 04/10/15 Diazepam [Valium] 10 mg PO DAILY PRN 04/10/15 Cholecalciferol [Vitamin D3 (25 Mcg = 1000 Iu)] 2,000 unit PO DAILY 09/28/15 Insulin Glargine [Lantus] 20 unit SQ QAM 07/25/16 Lipase/Protease/Amylase [Jose J Portillo 6,000 Units Capsule] 1 cap PO AC-TID 07/25/16 Pantoprazole Sodium [Protonix] 40 mg PO AC-BID 07/25/16 Apixaban [Eliquis] 2.5 mg PO BID 08/06/19 Insulin Aspart [NovoLOG Flexpen] 8 units SQ ACHS 08/06/19 Pramipexole [Mirapex] 0.25 mg PO BID 08/06/19 Terazosin HCl 5 mg PO HS 08/06/19 lisinopriL [Zestril] 2.5 mg PO DAILY 08/06/19 Ondansetron Odt [Zofran Odt] 4 mg PO Q8HR PRN #30 tab 08/08/19 Insulin Aspart [NovoLOG Flexpen] See Protocol SQ ACHS 09/09/19 Morphine Sulfate Ir [MSIR] 15 mg PO Q4H 09/09/19 Sennosides [Senna] 17.2 mg PO BID 09/09/19 fentaNYL 75MCG/HR PATCH [Duragesic 75MCG/HR] 1 patch TRANSDERM Q72H 09/09/19
--- NOTE | 2019-09-10 15:23 | P.PN ---
Subjective Progress Note Date: 09/10/19 Principal diagnosis: Uncontrolled pain Pain is improved on current regimen. at bedside, they state he underwent plexus block at [facility] but it did not help, therefore they refused from pain services. He has chronic constipation and worse with increased opioids Objective - Vital Signs Vital signs: Vital Signs Temp 98.2 F 09/10/19 13:51 Pulse 94 09/10/19 13:41 Resp 18 09/10/19 05:00 BP 114/61 09/10/19 13:41 Pulse Ox 96 09/10/19 13:41 Intake & Output 09/09/19 09/10/19 09/10/19 18:59 06:59 18:59 Intake Total 1015 Balance 1015 Weight 57.606 kg 57.606 kg Intake: Intake, IV Titration 725 Amount Sodium Chloride 0.9% 1, 725 000 ml @ 75 mls/hr IV . [id number] Rx#:[id number] Oral 290 Other: Voiding Method Toilet Toilet Toilet # Voids 1 - Exam - Constitutional General appearance: mild distress - EENT Eyes: EOMI, PERRLA ENT: hearing grossly normal, normal oropharynx - Neck Neck: no lymphadenopathy Thyroid: bilateral: normal size - Respiratory Respiratory: bilateral: CTA - Cardiovascular Rhythm: regular Heart sounds: normal: S1, S2 - Gastrointestinal General gastrointestinal: normal bowel sounds, soft Localized gastrointestinal: tender: epigastric periumbilical - Integumentary Integumentary: normal - Neurologic Neurologic: CNII-XII intact - Musculoskeletal Musculoskeletal: generalized weakness, strength equal bilaterally - Psychiatric Psychiatric: A&O x's 3, appropriate affect - Labs CBC & Chem 7: 09/09/19 10:28 09/10/19 08:37 Labs: Abnormal Lab Results - Last 24 Hours (Table) 09/09/19 09/09/19 09/09/19 Range/Units 14:55 16:56 17:12 Sodium (137-145) mmol/L BUN (9-20) mg/dL Creatinine (0.66-1.25) mg/dL POC Glucose (mg/dL) 48 L 70 L (75-99) mg/dL Total Protein (6.3-8.2) g/dL Albumin (3.5-5.0) g/dL Amorphous Sediment Rare H (None) /hpf Urine Bacteria Rare H (None) /hpf Hyaline Casts 7 H (0-2) /lpf Urine Mucus Rare H (None) /hpf 09/09/19 09/10/19 09/10/19 Range/Units 21:04 04:13 04:19 Sodium (137-145) mmol/L BUN (9-20) mg/dL Creatinine (0.66-1.25) mg/dL POC Glucose (mg/dL) 109 H 55 L 56 L (75-99) mg/dL Total Protein (6.3-8.2) g/dL Albumin (3.5-5.0) g/dL Amorphous Sediment (None) /hpf Urine Bacteria (None) /hpf Hyaline Casts (0-2) /lpf Urine Mucus (None) /hpf 09/10/19 09/10/19 09/10/19 Range/Units 04:28 07:52 08:37 Sodium 133 L (137-145) mmol/L BUN 6 L (9-20) mg/dL Creatinine 0.44 L (0.66-1.25) mg/dL POC Glucose (mg/dL) 131 H 53 L (75-99) mg/dL Total Protein 5.3 L (6.3-8.2) g/dL Albumin 3.0 L (3.5-5.0) g/dL Amorphous Sediment (None) /hpf Urine Bacteria (None) /hpf Hyaline Casts (0-2) /lpf Urine Mucus (None) /hpf 09/10/19 Range/Units 11:53 Sodium (137-145) mmol/L BUN (9-20) mg/dL Creatinine (0.66-1.25) mg/dL POC Glucose (mg/dL) 163 H (75-99) mg/dL Total Protein (6.3-8.2) g/dL Albumin (3.5-5.0) g/dL Amorphous Sediment (None) /hpf Urine Bacteria (None) /hpf Hyaline Casts (0-2) /lpf Urine Mucus (None) /hpf Assessment and Plan Plan: Comments: PET scan report reviewed CT scan - abdomen: report reviewed CT scan - pelvis: report reviewed Assessment and Plan: Intractable abdominal pain - Continue fentanyl 75 g - Patient has been placed on Dilaudid when necessary - The patient is likely to need increasing doses of opioids with opioid treatment alone. - Pain management service and the consulted for celiac plexus block. Patient has deferred this procedure for now given he feels "comfortable" on current regimen and will follow-up outpatient if he cannot control with new regimen at home. - In addition once patient is able to start treatment for malignancy, that could hopefully also help his pain control assuming he responds Pancreatic cancer - The patient is suspected to have recurrence and approximation to the celiac plexus. He had a needle biopsy which was however nondiagnostic. - PET scan was discussed with him. It does show uptake at the side of the pancreatic head (essentially the same location as the known recurrent mass) with no other sites of metastasis. The patient is not a candidate for additional radiation therapy. He has already been seen by radiation oncology. At this time the only plan appears to be systemic therapy. - He will follow-up with Primary Oncologist after discharge regarding options. Plan: - Plan to follow-up with Primary oncologist for further options of systemic treatment for palliation - Bowel regimen with increased opioid management - Recommend Plexus block, discussed with patient.
--- NOTE | 2019-09-10 16:43 | P.PN ---
Subjective Progress Note Date: 09/10/19 Patient is still having abdominal pain that is not well controlled. He did not have a bowel movement as of yet. He was also hypoglycemic this morning with blood glucose in the 50s. Objective - Vital Signs Vital signs: Vital Signs Temp 98.2 F 09/10/19 13:51 Pulse 94 09/10/19 13:41 Resp 18 09/10/19 05:00 BP 114/61 09/10/19 13:41 Pulse Ox 96 09/10/19 13:41 Intake & Output 09/09/19 09/10/19 09/10/19 18:59 06:59 18:59 Intake Total 1015 525 Balance 1015 525 Weight 57.606 kg 57.606 kg Intake: Intake, IV Titration 725 525 Amount Dextrose 5%-0.45% NaCl 1, 525 000 ml @ 75 mls/hr IV . [id number] [facility] Rx#:[id number] Sodium Chloride 0.9% 1, 725 000 ml @ 75 mls/hr IV . [id number] [id number] Rx#:[id number] Oral 290 Other: Voiding Method Toilet Toilet Toilet # Voids 1 - Exam General: The patient is awake and alert, in no distress Eye: there is normal conjunctiva bilaterally. Neck: The neck is supple, there is no JVD. Cardiovascular: Normal S1-S2, no S3-S4, no murmurs. Respiratory: Lungs clear to auscultation bilaterally Gastrointestinal: Abdomen is soft, nontender Musculoskeletal: There is no pedal edema. Neurological:. Speech is normal. Skin: Skin is warm and dry - Labs CBC & Chem 7: 09/09/19 10:28 09/10/19 08:37 Labs: Abnormal Lab Results - Last 24 Hours (Table) 09/09/19 09/09/19 09/09/19 Range/Units 16:56 17:12 21:04 Sodium (137-145) mmol/L BUN (9-20) mg/dL Creatinine (0.66-1.25) mg/dL POC Glucose (mg/dL) 48 L 70 L 109 H (75-99) mg/dL Total Protein (6.3-8.2) g/dL Albumin (3.5-5.0) g/dL 09/10/19 09/10/19 09/10/19 Range/Units 04:13 04:19 04:28 Sodium (137-145) mmol/L BUN (9-20) mg/dL Creatinine (0.66-1.25) mg/dL POC Glucose (mg/dL) 55 L 56 L 131 H (75-99) mg/dL Total Protein (6.3-8.2) g/dL Albumin (3.5-5.0) g/dL 09/10/19 09/10/19 09/10/19 Range/Units 07:52 08:37 11:53 Sodium 133 L (137-145) mmol/L BUN 6 L (9-20) mg/dL Creatinine 0.44 L (0.66-1.25) mg/dL POC Glucose (mg/dL) 53 L 163 H (75-99) mg/dL Total Protein 5.3 L (6.3-8.2) g/dL Albumin 3.0 L (3.5-5.0) g/dL Assessment and Plan Assessment: 1. Abdominal pain: Multifactorial secondary to underlying tumor and constipation. Computed tomography scan of the abdomen showed early ileus and extensive fecal debris throughout the colon. continue IV fluid hydration. Another dose of lactulose today. Continue home regimen of stool softeners. MiraLAX daily. Liquid diet for now. 2. 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 Oncology consulted, appreciate recommendation 3. History of right upper extremity DVT on anticoagulation 4. Type 2 diabetes: Continue sliding scale insulin and discontinue Lantus in setting of hypoglycemia 5. Hyperlipidemia on Lipitor Change fluid to D5 half-normal saline.
[2019-09-10 17:12] LABS: Glucose,Whole Blood 220 mg/dL (75-99)
[2019-09-10] MEDS: polyethylene glycoL 3350 17 GM POWD.PACK PO SCH (19:59)
[2019-09-10] MEDS: ATORVASTATIN 80 MG TAB PO SCH (20:00)
[2019-09-10] MEDS: DOXAZOSIN 4 MG TAB PO SCH (20:00)
[2019-09-10 20:16] LABS: Glucose,Whole Blood 316 mg/dL (75-99)
[2019-09-11 02:02] LABS: Glucose,Whole Blood 301 mg/dL (75-99)
[2019-09-11] MEDS: MORPHINE SULFATE IR 15 MG TABLET PO SCH ×3 (04:16→12:22)
[2019-09-11 05:42] VITALS: TEMP 98.1
[2019-09-11 07:14] LABS: Glucose,Whole Blood 387 mg/dL (75-99)
[2019-09-11 07:23] LABS: Basophils % (A) 0 %; Eosinophils # (A) 0.1 k/uL (0-0.7); Eosinophils % (A) 1 %; HGB 10.8 gm/dL (13.0-17.5); Hypochromasia Slight; Lymphocytes # (A) 0.6 k/uL (1.0-4.8); Lymphocytes % (A) 5 %; MCH 31.9 pg (25.0-35.0); MCHC 31.7 g/dL (31.0-37.0); MCV 100.6 fL (80.0-100.0); Macrocytosis Slight; Mean Platelet Volume 8.5; Monocytes # (A) 0.8 k/uL (0-1.0); Monocytes % (A) 6 %; Neutrophils % (A) 88 %; Platelet Count 230 k/uL (150-450); RBC 3.38 m/uL (4.30-5.90); RDW 13.7 % (11.5-15.5); WBC 13.7 k/uL (3.8-10.6)
[2019-09-11] MEDS: PANTOPRAZOLE 40 MG TABLET PO SCH (07:56)
[2019-09-11] MEDS: SENNOSIDES 8.6 MG TAB PO SCH (07:56)
[2019-09-11] MEDS: APIXABAN 2.5 MG TABLET PO SCH (07:56)
[2019-09-11] MEDS: LIPASE 5,000/PROTEASE 17,000/AMYLASE 24,000 PO SCH ×2 (07:56→12:22)
[2019-09-11] MEDS: INSULIN ASPART (NovoLOG) 100 UNIT/ML VIAL SQ SCH ×2 (07:57→12:22)
[2019-09-11] MEDS: PRAMIPEXOLE 0.25 MG TAB PO SCH (07:57)
[2019-09-11 11:34] LABS: Glucose,Whole Blood 391 mg/dL (75-99)
[2019-09-11] MEDS: DEXTROSE 5%-0.45% NACL 1,000 ML IV SCH (12:18)
[2019-09-11 12:38] VITALS: BP 106/63; PULSE 60
--- NOTE | 2019-09-11 13:08 | P.DS ---
Providers Date of admission: 09/09/19 13:41 Expected date of discharge: 09/11/19 Attending physician: Marcelle Hastings MD Consults: 09/09/19 13:06 Consult Physician Urgent Consulting Provider: Alexandre Warren Consult Reason/Comments: oncological care Do you want consulting provider notified?: Yes Primary care physician: Brando Chapman [facility] Course: This is a 69-year-old male with complex past medical history noted below who presented to the emergency room with abdominal pain. Patient was evaluated in the ER and admitted to the hospital for further management of his medical problems noted below. 1. Abdominal pain: Multifactorial secondary to underlying tumor and constipation. Computed tomography scan of the abdomen showed early ileus and extensive fecal debris throughout the colon. Stool softeners and MiraLAX daily. Patient had a bowel movement which partially improved his symptoms. Patient was also seen and evaluated by pain management, appreciate recommendation 2. 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 Oncology consulted, appreciate recommendation. Plan to follow-up in the office on Friday 3. History of right upper extremity DVT on anticoagulation 4. Type 2 diabetes: Continue sliding scale insulin and decrease Lantus dose to 10 units once a day in setting of hypoglycemia 5. Hyperlipidemia on Lipitor Patient will be discharged home in a stable condition. For further details about this hospitalization please refer to the electronic chart. Patient Condition at Discharge: Poor Plan - Discharge Summary Discharge Rx Participant: No New Discharge Prescriptions: Continue Diazepam [Valium] 10 mg PO DAILY PRN PRN Reason: Anxiety Atorvastatin [Lipitor] 80 mg PO HS Cholecalciferol [Vitamin D3 (25 Mcg = 1000 Iu)] 2,000 unit PO DAILY Lipase/Protease/Amylase [Creon Dr 6,000 Units Capsule] 1 cap PO AC-TID Pantoprazole Sodium [Protonix] 40 mg PO AC-BID Pramipexole [Mirapex] 0.25 mg PO BID lisinopriL [Zestril] 2.5 mg PO DAILY Terazosin HCl 5 mg PO HS Apixaban [Eliquis] 2.5 mg PO BID Ondansetron Odt [Zofran ODT] 4 mg PO Q8HR PRN #30 tab PRN Reason: Vomiting fentaNYL 75MCG/HR PATCH [Duragesic 75MCG/HR] 1 patch TRANSDERM Q72H Insulin Aspart [NovoLOG Flexpen] See Protocol SQ ACHS Morphine Sulfate Ir [MSIR] 15 mg PO Q4H Sennosides [Senna] 17.2 mg PO BID Changed Insulin Glargine [Lantus] 10 unit SQ QAM #0 Discontinued Insulin Aspart [NovoLOG Flexpen] 8 units SQ ACHS Discharge Medication List Atorvastatin [Lipitor] 80 mg PO HS 04/10/15 [History] Diazepam [Valium] 10 mg PO DAILY PRN 04/10/15 [History] Cholecalciferol [Vitamin D3 (25 Mcg = 1000 Iu)] 2,000 unit PO DAILY 09/28/15 [History] Lipase/Protease/Amylase [Jose J Dr 6,000 Units Capsule] 1 cap PO AC-TID 07/25/16 [History] Pantoprazole Sodium [Protonix] 40 mg PO AC-BID 07/25/16 [History] Apixaban [Eliquis] 2.5 mg PO BID 08/06/19 [History] Pramipexole [Mirapex] 0.25 mg PO BID 08/06/19 [History] Terazosin HCl 5 mg PO HS 08/06/19 [History] lisinopriL [Zestril] 2.5 mg PO DAILY 08/06/19 [History] Ondansetron Odt [Zofran ODT] 4 mg PO Q8HR PRN #30 tab 08/08/19 [Rx] Insulin Aspart [NovoLOG Flexpen] See Protocol SQ ACHS 09/09/19 [History] Morphine Sulfate Ir [MSIR] 15 mg PO Q4H 09/09/19 [History] Sennosides [Senna] 17.2 mg PO BID 09/09/19 [History] fentaNYL 75MCG/HR PATCH [Duragesic 75MCG/HR] 1 patch TRANSDERM Q72H 09/09/19 [History] Insulin Glargine [Lantus] 10 unit SQ QAM #0 09/11/19 [Rx] Follow up Appointment(s)/Referral(s): [facility] [NON-STAFF] - 1 Week Brando Chapman DO [Primary Care Provider] - 1-2 days Discharge Disposition: HOME WITH HOME HEALTH SERVICES
== END 2019-09-11 14:16 | disposition home or self-care (01) | DRG 948 ==
LOC: EC 10:10 → 5NMEDONC 13:41
PROVIDERS: ADMIT Internal Medicine; ATTEND Internal Medicine
DX: G89.3 Neoplasm related pain (acute) (chronic) (principal); K56.7 Ileus, unspecified; C25.9 Malignant neoplasm of pancreas, unspecified; K59.00 Constipation, unspecified; E11.649 Type 2 diabetes mellitus with hypoglycemia without coma; E78.5 Hyperlipidemia, unspecified; I10 Essential (primary) hypertension; I25.10 Atherosclerotic heart disease of native coronary artery without angina pectoris; H91.93 Unspecified hearing loss, bilateral; M19.90 Unspecified osteoarthritis, unspecified site; Z11.59 Encounter for screening for other viral diseases; Z79.899 Other long term (current) drug therapy; Z79.4 Long term (current) use of insulin; Z79.01 Long term (current) use of anticoagulants; Z86.718 Personal history of other venous thrombosis and embolism; I25.2 Old myocardial infarction; Z87.01 Personal history of pneumonia (recurrent); Z92.21 Personal history of antineoplastic chemotherapy; Z98.1 Arthrodesis status; Z98.890 Other specified postprocedural states; Z80.0 Family history of malignant neoplasm of digestive organs; Z83.3 Family history of diabetes mellitus; Z87.19 Personal history of other diseases of the digestive system; Z87.891 Personal history of nicotine dependence; Z90.411 Acquired partial absence of pancreas
CPT/HCPCS: 36415; 74176; 80053; 81001; 82150; 83690; 83735; 85025; 85610; 85730; 93005; 96361; 96374; 96375; 96376; 99285

== ENCOUNTER 2019-10-30 08:21 | Emergency (ER) | payer MEDICARE, BC ==
[2019-10-30 08:34] VITALS: TEMP 97.5
--- NOTE | 2019-10-30 08:40 | ED ---
Fall HPI - General Chief Complaint: Fall Stated Complaint: Fall Time Seen by Provider: 10/30/19 08:28 Source: patient, EMS, RN notes reviewed, old records reviewed Mode of arrival: EMS - History of Present Illness Initial Comments: This Patient is a 69-year-old male with a history of pancreatic cancer. He presents to the ER today after a fall from standing position on his ground. He is currently on hospice receiving oral morphine. Patient reportedly fell hitting the left hip. Family was able to get the Patient back into his chair. Hospice nurse arrived noted shortened left leg deformity with external rotation. He was sent here for further evaluation. Patient is aren't he had oral morphine, Patient is very tired but is resting in bed. Patient reportedly did not hit head. - Related Data Home Medications Medication Instructions Recorded Confirmed Atorvastatin [Lipitor] 80 mg PO HS 04/10/15 09/09/19 Diazepam [Valium] 10 mg PO DAILY PRN 04/10/15 09/09/19 Cholecalciferol [Vitamin D3 (25 2,000 unit PO DAILY 09/28/15 09/09/19 Mcg = 1000 Iu)] Lipase/Protease/Amylase [Jose J Dr 1 cap PO AC-TID 07/25/16 09/09/19 6,000 Units Capsule] Pantoprazole Sodium [Protonix] 40 mg PO AC-BID 07/25/16 09/09/19 Apixaban [Eliquis] 2.5 mg PO BID 08/06/19 09/09/19 Pramipexole [Mirapex] 0.25 mg PO BID 08/06/19 09/09/19 Terazosin HCl 5 mg PO HS 08/06/19 09/09/19 lisinopriL [Zestril] 2.5 mg PO DAILY 08/06/19 09/09/19 Insulin Aspart [NovoLOG Flexpen] See Protocol SQ ACHS 09/09/19 09/09/19 Morphine Sulfate Ir [MSIR] 15 mg PO Q4H 09/09/19 09/09/19 Sennosides [Senna] 17.2 mg PO BID 09/09/19 09/09/19 fentaNYL 75MCG/HR PATCH [Duragesic 1 patch TRANSDERM Q72H 09/09/19 09/09/19 75MCG/HR] Previous Rx's Medication Instructions Recorded Ondansetron Odt [Zofran ODT] 4 mg PO Q8HR PRN #30 tab 08/08/19 Insulin Glargine [Lantus] 10 unit SQ QAM #0 09/11/19 Allergies Allergy/AdvReac Type Severity Reaction Status Date / Time No Known Allergies Allergy Verified 09/09/19 10:54 Review of Systems ROS Statement: Those systems with pertinent positive or pertinent negative responses have been documented in the HPI. ROS Other: All systems not noted in ROS Statement are negative. Past Medical History Past Medical History: Coronary Artery Disease (CAD), Cancer, Diabetes Mellitus, Deep Vein Thrombosis (DVT), GERD/Reflux, Hearing Disorder / Deafness, Hyperlipidemia, Hypertension, Myocardial Infarction (OK), Musculoskeletal Disorder, Osteoarthritis (OA), Pneumonia Additional Past Medical History / Comment(s): Pt recently admitted to [facility] 08/08/19 with intractable abdominal pain 2ndary to malignancy with hx of pancreatic cancer with new mass near celiac plexus/anemia/severe protein calorie malnutrition. Other hx: 2017 Pancreatic cancer with whipple procedure/chemo/radiation, chronic abdominal pain, constipation, DVT R arm and R leg, AAA-being monitored, MOAPA bilaterally-chronic L ear infection, arthritis cervical and low back, benign colon polyps-currently has 2 large polyps that are in a difficult location-was to go to [facility] for removal but health has not allowed this to happen Last Myocardial Infarction Date:: 1988 History of Any Multi-Drug Resistant Organisms: None Reported Past Surgical History: Ear Surgery, Heart Catheterization, Orthopedic Surgery Additional Past Surgical History / Comment(s): 2017 Whipple procedure, peg tube since removed, R chest port since removed, PTCA-2 vessels in 1988, cervical fusion x2, L ear myringotomies/tubes, colonoscopy/benign polypectomies. Past Anesthesia/Blood Transfusion Reactions: No Reported Reaction Past Psychological History: No Psychological Hx Reported Smoking Status: Former smoker - Past Family History Mother Family Medical History: Diabetes Mellitus Father Family Medical History: Cancer Additional Family Medical History / Comment(s): LIVER CA General Exam - General Exam Comments Initial Comments: 69-year-old male. Groggy. Pinpoint pupils. Limitations: no limitations General appearance: alert, in no apparent distress Head exam: Present: atraumatic, normocephalic, normal inspection Eye exam: Present: PERRL, EOMI. Absent: normal appearance (pinpoint pupils), scleral icterus, conjunctival injection, periorbital swelling ENT exam: Present: mucous membranes dry, mucous membranes moist. Absent: normal exam Neck exam: Present: normal inspection Respiratory exam: Present: normal lung sounds bilaterally. Absent: respiratory distress, wheezes, rales, rhonchi, stridor Cardiovascular Exam: Present: regular rate, normal rhythm, normal heart sounds. Absent: systolic murmur, diastolic murmur, rubs, gallop, clicks GI/Abdominal exam: Present: soft, normal bowel sounds. Absent: distended, tenderness, guarding, rebound, rigid Extremities exam: Absent: normal inspection Left Hip exam: Present: external rotation, shortening. Absent: full ROM Upper Leg exam: Present: normal inspection, full ROM Knee exam: Present: normal inspection, full ROM Lower Leg exam: Present: normal inspection, full ROM Back exam: Present: normal inspection, full ROM Neurological exam: Present: alert, oriented X3, CN II-XII intact Psychiatric exam: Present: normal affect, normal mood Skin exam: Present: warm, dry, intact, normal color. Absent: rash Course Vital Signs 10/30/19 08:24 Temperature 97.5 F L Pulse Rate 74 Respiratory 16 Rate Blood Pressure 129/90 O2 Sat by Pulse 93 L Oximetry - Reevaluation(s) Reevaluation #1: 10/30/19 08:39 Patient is a no code. Reevaluation #2: 10/30/19 10:07 Discussed the findings with patient's and discussed that with intertrochanteric fracture would require surgery however with Patient on hospice this would not be advised. In light is agreeable. I discussed the Patient is now bedbound. I discussed using a Brewer to help with comfort care for urination and she is agreeable to this as well. And will have the Patient transferred back to her home where she does have a hospital bed. I will inform hospice nurses patient's care and to transfer back home. Medical Decision Making - Medical Decision Making This is a 69-year-old male with history of pancreatic cancer on hospice who presents after falling in his garage this morning and landing on his left hip. Has an obvious deformity of the short leg with external rotation. X-ray confirms intertrochanteric fracture. Patient arrived he is resting soundly in bed and is arousable to palpation. He did receive morphine prior to arrival. Patient was given Brewer catheter. Discussed with the Patient being on hospice should be transferred back home for Comfort Care. Patient is bedbound. I discussed with hospice nursing will be out to evaluate Patient today. Also informed the chest x-ray did show small left pleural effusion which likely from the cancer. - Radiology Data Radiology results: report reviewed Is acute minimally displaced intertrochanteric fracture of the left proximal femur. Chest x-ray shows poor inspiration. Background chronic and symmetrical pulmonary fibrotic changes with new small left pleural effusion with paler acute infiltrate or atelectasis. Progress to view chest x-ray of eyes. Disposition Clinical Impression: Pancreatic cancer, Hospice care patient, Intertrochanteric fracture of left femur, Pleural effusion on left Disposition: HOME SELF-CARE Condition: Stable Is patient prescribed a controlled substance at d/c from ED?: No Referrals: Brando Chapman DO [Primary Care Provider] - 1-2 days Time of Disposition: 10:20
--- NOTE | 2019-10-30 09:29 | XR ---
EXAMINATION TYPE: XR chest 1V DATE OF EXAM: 10/30/2019 COMPARISON: CT January 18, 2019. Chest x-ray September 16, 2017. HISTORY: Fall injury with pain. TECHNIQUE: Single frontal view of the chest is obtained. FINDINGS: There is background chronic emphysematous and pulmonary fibrotic changes. Poor inspiration noted. New lateral left basilar acute atelectasis and/or infiltrate. New small left pleural effusion . The cardiac silhouette size is upper limits of normal with atherosclerotic aorta. The osseous str uctures are demineralized. IMPRESSION: Poor inspiration. Background chronic emphysematous and pulmonary fibrotic change with ne w small left pleural effusion and lateral left basilar acute infiltrate and/or atelectasis. Progress two-view chest x-ray advised.
--- NOTE | 2019-10-30 09:31 | XR ---
EXAMINATION TYPE: XR Hip LT and AP Pelvis DATE OF EXAM: 10/30/2019 COMPARISON: CT abdomen and pelvis September 09, 2019. PET CT August 28, 2019. HISTORY: Fall injury with pelvic and left hip pain. History of duodenal ampullary cancer. TECHNIQUE: A single AP view of the pelvis is obtained. Two views of the left hip are obtained. FINDINGS: Osseous structures are demineralized which is noted to lower radiographic sensitivity. Subo ptimal study due to overlying blanket or clothing material. Persistent linear lucency consistent with acute minimally displaced oblique intertrochanteric fracture left proximal femur. No hip joint dislo cation. Mild to moderate axial joint space loss in both hips with mild acetabular spurring. Vascular calcification and phleboliths in the pelvis extending to the left groin region. Pubic symphy sis is intact. Sacroiliac joints are preserved. IMPRESSION: There is acute minimally displaced intertrochanteric fracture left proximal femur. (Initial encounter closed type posttraumatic fracture)
[2019-10-30 10:48] VITALS: BP 110/88; PULSE 63; RESP 18
== END 2019-10-30 10:28 | disposition home or self-care (01) ==
LOC: EC 08:21
DX: S72.142A Displaced intertrochanteric fracture of left femur, initial encounter for closed fracture (principal); J90 Pleural effusion, not elsewhere classified; I25.2 Old myocardial infarction; E78.5 Hyperlipidemia, unspecified; I10 Essential (primary) hypertension; K21.9 Gastro-esophageal reflux disease without esophagitis; M19.90 Unspecified osteoarthritis, unspecified site; E11.9 Type 2 diabetes mellitus without complications; Z79.4 Long term (current) use of insulin; Z79.899 Other long term (current) drug therapy; Z79.01 Long term (current) use of anticoagulants; Z79.1 Long term (current) use of non-steroidal anti-inflammatories (NSAID); Z86.718 Personal history of other venous thrombosis and embolism; Z87.891 Personal history of nicotine dependence; Z95.5 Presence of coronary angioplasty implant and graft; Z98.1 Arthrodesis status; Z85.07 Personal history of malignant neoplasm of pancreas; W18.30XA Fall on same level, unspecified, initial encounter; Y92.009 Unspecified place in unspecified non-institutional (private) residence as the place of occurrence of the external cause
CPT/HCPCS: 51702; 71045; 73502; 99284